=== PATIENT | female | born 1940 | race Caucasian/White ===

== ENCOUNTER 2018-02-24 23:06 | Inpatient (IN) | payer MEDICARE, OTHER ==
[2018-02-25] MEDS ORDERED: cefTRIAXone\\ROCEPHIN 1 GM VIAL ONE (00:53)
[2018-02-25 01:11] LABS: Bilirubin Negative (Negative); Blood, Urine Trace (Negative); Clarity CLOUDY (Clear); Glucose, Urine (Dipstick) Negative (Negative); Leukocyte Large (Negative); Nitrite Negative (Negative); Protein, Urine (Dipstick) 30 mg/dL (Neg-Trace); Specific Gravity, Urine 1.009 (1.002-1.036); Urobilinogen 0.2 mg/dL (0.2-1.0)
[2018-02-25 01:13] LABS: Bacteria/HPF 4+ HPF (None Seen); Hyaline Casts/LPF 4-6 HYALINE CAST LPF (0-3 Hyaline); Pathc Cast-AUWi Flag 1.01 (0-2.49); Squamous Epithelial None Seen HPF (0-3)
[2018-02-25 01:45] LABS: #Basophils 0.1 thou/uL (0.0-0.2); #Lymphocytes 2.1 thou/uL (1.20-3.40); #Monocytes 0.7 thou/uL (0.11-0.59); %Basophils 0.4 % (0.0-1.0); %Monocytes 3.9 % (0.0-10.0); %Neutrophils 84.6 % (42.0-75.0); Hemoglobin 11.3 g/dL (12.0-16.0); Mean Corpuscular HGB CONC 33.3 g/dL (32.0-36.0); Mean Corpuscular Hemoglobin 31.1 pg (27.0-31.0); Mean Corpuscular Volume 93.2 fL (78.0-98.0); Mean Platelet Volume 7.6 fL (7.4-10.4); Platelet Count 415 thou/uL (130-400); RBC Distribution Width 13.7 % (11.5-14.5); Red Blood Cell (RBC) Count 3.65 mill/uL (4.20-5.40); White Blood Cell (WBC) Count 18.9 thou/uL (4.8-10.8)
[2018-02-25 01:48] LABS: ALT (SGPT) 9 U/L (8-55); AST (SGOT) 12 U/L (5-34); Alkaline Phosphatase 89 U/L (40-150); Anion Gap 23 mmol/L (10-20); Bilirubin, Total 0.3 mg/dL (0.2-1.2); CK (CPK) 32 U/L (29-168); Calc. Creatinine Clearance 0 mL/min (70-130); Calcium 11.7 mg/dL (7.8-10.44); Carbon Dioxide 10 mmol/L (23-31); Chloride 113 mmol/L (98-107); Estimated GFR-MDRD 6; Globulin 3.2 g/dL (2.4-3.5); Glucose 103 mg/dL (83-110); Lipase 26 U/L (8-78); Protein, Total 7.2 g/dL (6.0-8.3); Sodium 139 mmol/L (136-145)
[2018-02-25 01:59] LABS: CKMB 1.3 ng/mL (0-6.6)
[2018-02-25 02:00] LABS: BUN (Urea Nitrogen) 151 mg/dL (9.8-20.1)
[2018-02-25 02:01] LABS: Troponin I Less than 0.010 ng/mL (< 0.028)
[2018-02-25 02:03] LABS: Potassium 7.4 mmol/L (3.5-5.1)
[2018-02-25] MEDS ORDERED: Ondansetron HCl/PF 4 MG/2 ML Vial IVP PRN (02:48)
[2018-02-25] MEDS ORDERED: Acetaminophen 325 MG TAB PO PRN (02:48)
[2018-02-25 03:28] LABS: Lactic Acid 1.2 mmol/L (0.5-2.2)
[2018-02-25] MEDS ORDERED: Sodium Bicarbonate 150 MEQ in Dextrose 5% in Water 1,000 ML IV SCH (03:30)
[2018-02-25 06:29] LABS: Potassium 8.2 mmol/L (3.5-5.1)
[2018-02-25 07:00] LABS: Potassium 7.2 mmol/L (3.5-5.1)
[2018-02-25] MEDS ORDERED: Lidocaine 1% (PF) 30 ML VIAL ONE (07:42)
[2018-02-25] MEDS: Heparin 5,000 UNITS/ML VIAL SC SCH ×3 (08:37→22:42)
--- NOTE | 2018-02-25 09:03 | ULT ---
BILATERAL RENAL ULTRASOUND: Date: 02/25/18 HISTORY: Acute renal failure. Evaluate for obstructive uropathy. COMPARISON: None. TECHNIQUE: Sagittal and transverse imaging of the kidneys performed. FINDINGS: Both kidneys have an overall normal echotexture. Bilaterally, no hydronephrosis. There is a 1.3 x 1.4 x 1.3 cm hypoechoic focus in the upper pole of the right kidney. Right kidney measures 10.5 x 4.0 x 4.5 cm. Left kidney measures 10.2 x 5.3 x 5.4 cm. Though there is a Pichardo catheter in the urinary bladder, there is still urine present. IMPRESSION: 1. Hypoechoic focus in upper pole of right kidney, which may represent a complex cyst. Follow-up ult rasound in 6 months is recommended. 2. No hydronephrosis. POS: FOUZIA
[2018-02-25 09:48] LABS: HBSAB Concentration 0.34 mIU/mL; HBSAg Index 0.17 S/CO (0-0.99); Hep B Core Total Ab Non-Reactive (NonReactive); Hep B Core Total Index 0.34 S/CO (0-0.79); Hep B Surf AB Non-Reactive (NonReactive); Hep B Surf Ag Non-Reactive S/CO (NonReactive); Hep C IgG Ab Non-Reactive (NonReactive); Hep C Index 0.22 S/CO (0-0.79)
[2018-02-25] MEDS ORDERED: Heparin 10,000 UNITS/ 10 ML VIAL ONE (10:00)
--- NOTE | 2018-02-25 11:12 | PDOC.PN ---
- Subjective Encounter Start Date: 02/25/18 Encounter Start Time: 10:30 Subjective: awake, not oriented -: not in distress -: getting HD - Objective Resuscitation Status: Resuscitation Status FULL:Full Resuscitation MAR Reviewed: Yes Vital Signs & Weight: Vital Signs (12 hours) Temp Pulse Ox 02/25/18 07:22 100 02/25/18 07:00 98.0 F 02/25/18 05:21 98 02/25/18 03:45 98.6 F Weight Weight 104 lb 4.458 oz Most Recent Monitor Data Heart Rate from ECG 79 NIBP 120/66 NIBP BP-Mean 84 Respiration from ECG 23 SpO2 97 I&O: 02/24/18 02/25/18 02/26/18 06:59 06:59 06:59 Intake Total 115 Output Total 340 785 Balance -225 -785 Result Diagrams: 02/25/18 01:33 02/25/18 06:41 Phys Exam - Physical Examination HEENT: PERRLA, sclera anicteric Neck: no JVD, supple Respiratory: no wheezing rales+ Cardiovascular: RRR, no significant murmur Gastrointestinal: soft, non-tender, positive bowel sounds Musculoskeletal: no edema, pulses present Neurological: non-focal, moves all 4 limbs Dx/Plan (1) Hyperkalemia Code(s): E87.5 - HYPERKALEMIA Status: Acute (2) Acute renal failure Status: Acute Qualifiers: Acute renal failure type: unspecified Qualified Code(s): N17.9 - Acute kidney failure, unspecified (3) Metabolic acidosis Code(s): E87.2 - ACIDOSIS Status: Acute (4) Severe dehydration Code(s): E86.0 - DEHYDRATION Status: Acute (5) Volume overload Code(s): E87.70 - FLUID OVERLOAD, UNSPECIFIED Status: Acute (6) Dementia Code(s): F03.90 - UNSPECIFIED DEMENTIA WITHOUT BEHAVIORAL DISTURBANCE Status: Chronic Qualifiers: Dementia type: unspecified type - Plan is getting hemodialysis for persistent severely elevated potassium -: not sure if she is a custodial candidate for HD with underlying fairly adv -: -dementia -: correct electrolytes, renal usg shows no obstr uropathy -: is on rocephin for uti. Had normal creatinine of 1 in december 2017 * . Review of Systems - Medications/Allergies Allergies/Adverse Reactions: Allergies Allergy/AdvReac Type Severity Reaction Status Date / Time celecoxib [From Celebrex] Allergy Verified 02/25/18 04:17 rosuvastatin [From Crestor] Allergy Verified 02/25/18 04:17 Medications: Current Medications Acetaminophen (Tylenol) 650 mg PO Q4H PRN PRN Reason: Headache/Fever or Pain Heparin Sodium (Porcine) (Heparin) 5,000 units SC TID [facility] Last Admin: 02/25/18 08:37 Dose: 5,000 units Ceftriaxone Sodium 1 gm/ (Sodium Chloride) 100 mls @ 200 mls/hr IVPB Q24HR [facility] Sodium Bicarbonate 150 meq/ (Dextrose/Water) 1,150 mls @ 125 mls/hr IV .Q9H12M [facility] Stop: 02/25/18 12:30 Last Admin: 02/25/18 04:11 Dose: 1,150 mls Ondansetron HCl (Zofran) 4 mg IVP Q6H PRN PRN Reason: Nausea/Vomiting
[2018-02-25] MEDS ORDERED: Sodium Bicarbonate 100 MEQ in Dextrose 5% in Water 1,000 ML IV SCH (12:15)
[2018-02-25] MEDS ORDERED: Lactated Ringer's 1,000 ML IV SCH (12:15)
--- NOTE | 2018-02-25 12:30 | CON ---
DATE OF CONSULTATION: 02/25/2018 SERVICE: Pulmonary Medicine. REASON FOR CONSULTATION: ICU patient. HISTORY OF PRESENT ILLNESS: The patient is a 77-year-old white female with past medical history significant for advancing dementia. She can no longer take care of herself. She has a hard time walking with a walker. She had a fall and made broke her hip. Since that time, she had very difficult time recovering. She spends most of her time in bed sleeping. Otherwise, in this usual state of health, on Monday, she stopped eating. She stopped drinking anything. The daughter suggest that was because she hurt her jaw. Since then, she has not been taking any p.o. Either way, she got increasingly dehydrated. When she started becoming lethargic, she was brought to the Emergency Department. She was discovered to be profoundly volume down. She was given a little bit of IV fluids, which improved her urine output because of hyperkalemia , she underwent dialysis. She just finished this up. She tolerated fairly well , but right at the end, had some marginal blood pressures. The patient cannot provide any additional elements of the history. She gotten no worse, she is what the situation is. She currently denies having any chest pain or shortness of breath. She has some leg discomfort where the vas cath was placed. PAST MEDICAL HISTORY: 1. Dementia. 2. Coronary artery disease. 3. Hypertension. 4. Dyslipidemia. PAST SURGICAL HISTORY: 1. Hip surgery in 10/2017. 2. Hysterectomy. 3. Tonsillectomy. SOCIAL HISTORY: The patient was a heavy drinker and a heavy alcohol user. She has not been on any of these things in the past 6 months. She has no history of illicit drug use that we are aware of. She has no exposure to chemicals, dust asbestos or tuberculosis. FAMILY HISTORY: Noncontributory. ALLERGIES: CELECOXIB, ROSUVASTATIN. MEDICATIONS: List of her inpatient medications were reviewed. Couple of small updates were made. REVIEW OF SYSTEMS: General, head, eyes, nose, throat, cardiovascular, respiratory, GI, , musculoskeletal, neurologic and skin is negative except as mentioned in the HPI. PHYSICAL EXAMINATION: VITAL SIGNS: Afebrile, pulse 84, blood pressure 99/49, respirations 18, saturation 99% on room air. GENERAL: The patient is awake, alert, in no apparent distress. LUNGS: Decent air entry. There is no rhonchi or crackles present. There is a slightly prolonged expiratory phase, but I do not appreciate any wheezing. HEART: Normal rate, regular. ABDOMEN: Soft, nontender, nondistended. Bowel sounds are positive. MUSCULOSKELETAL: No cyanosis or clubbing. There is no pitting in the bilateral lower extremities, but she does demonstrate tenting throughout. GENITOURINARY: Pichardo catheter in place. NEUROLOGIC: Grossly nonfocal. LABORATORY DATA: WBC 18.9, hemoglobin 11.3, platelets 415,000. Potassium 7.2 as of this morning, prior to dialysis. Creatinine 6.73, above baseline of 1.06 from 2 months ago. BUN 151. Liver function studies are unremarkable. BNP 1700 , lactate 1.2. Urinalysis is positive for pyuria. Hepatitis serologies are unremarkable. Urine culture is negative to date. IMAGING DATA: 1. Ultrasound demonstrates no evidence of hydronephrosis. Possible complex cyst is in the right kidney. 2. Chest x-ray demonstrates no acute cardiopulmonary abnormality. ASSESSMENT: 1. Metabolic encephalopathy. 2. Acute kidney injury. 3. Hyperkalemia. 4. Dehydration, profound 5. Dementia, advanced. DISCUSSION AND PLAN: We will continue supportive measures including IV fluids. Our target will be to rehydrate the abrasion over the next 24-48 hours. Her potassium will be lower after dialysis. At this point, she is stable for transition to the telemetry unit. Pulmonary Critical Care will continue to follow along in the meantime. 70 minutes have been devoted to this patient in various activities. I personally reviewed all imaging studies and laboratory data noted within this document. For fifty percent of this time, I was interacting with the patient at the bedside or coordinating care with the care team. For the remainder of the time I was immediately available to the patient in the hospital unit. LUCRECIA
--- NOTE | 2018-02-25 13:05 | PDOC.EVN ---
Event Note - Event Note Event Note: D/w daughter at bedside and gave full updates about all labs and the current plan. She will talk to her brother and decide about code status and let us know, likely DNR but await her opinion. Daughter is aware that renal function might not recover or will take a long time to recover. May transfer to telemetry, will likely need sitter if daughter leaves her bedside.
[2018-02-25 14:48] LABS: Anion Gap 17 mmol/L (10-20); BUN (Urea Nitrogen) 78 mg/dL (9.8-20.1); Calc. Creatinine Clearance 12 mL/min (70-130); Calcium 9.2 mg/dL (7.8-10.44); Carbon Dioxide 25 mmol/L (23-31); Chloride 108 mmol/L (98-107); Estimated GFR-MDRD 16; Glucose 128 mg/dL (83-110); Potassium 4.4 mmol/L (3.5-5.1); Sodium 146 mmol/L (136-145)
--- NOTE | 2018-02-25 23:48 | OP ---
PROCEDURE: Right femoral dialysis catheter placement with ultrasound guidance. BALANCE STAFF INSPECTOR: Javid Mejia MD MEDICATION: 2% lidocaine. DETAILS OF PROCEDURE: After the site has been identified, ultrasound was used to identify the right femoral vein and marked on the skin. After the patient was prepped and draped, with the aid of real time ultrasound guidance, the right femoral vein was approached in layers, and after serial dilatatio n, a dialysis catheter was then secured in place and all the ports flushed well. The patient tolerat ed the procedure with no immediate postop complications.
[2018-02-26] MEDS: cefTRIAXone\\ROCEPHIN 1 GM in Sodium Chloride 0.9% 100 ML IVPB SCH ×2 (00:32→22:13)
[2018-02-26 04:45] LABS: Anion Gap 16 mmol/L (10-20); BUN (Urea Nitrogen) 58 mg/dL (9.8-20.1); Calc. Creatinine Clearance 17 mL/min (70-130); Calcium 8.5 mg/dL (7.8-10.44); Carbon Dioxide 30 mmol/L (23-31); Chloride 103 mmol/L (98-107); Estimated GFR-MDRD 24; Glucose 87 mg/dL (83-110); Potassium 3.9 mmol/L (3.5-5.1); Sodium 145 mmol/L (136-145)
[2018-02-26 05:29] LABS: Eosinophils 3 % (0-10); Hemoglobin 9.4 g/dL (12.0-16.0); Lymphocytes 34 % (21-51); MDiff Complete? YES; Mean Corpuscular HGB CONC 33.4 g/dL (32.0-36.0); Mean Corpuscular Hemoglobin 30.6 pg (27.0-31.0); Mean Corpuscular Volume 91.9 fL (78.0-98.0); Mean Platelet Volume 7.8 fL (7.4-10.4); Monocytes 4 % (0-10); Neutrophil 57 % (42-75); Platelet Count 292 thou/uL (130-400); RBC Distribution Width 13.7 % (11.5-14.5); Reactive Lymphocytes 2 % (0-10); Red Blood Cell (RBC) Count 3.06 mill/uL (4.20-5.40); White Blood Cell (WBC) Count 14.3 thou/uL (4.8-10.8)
--- NOTE | 2018-02-26 07:32 | CON ---
DATE OF CONSULTATION: 02/25/2018 CONSULTING PHYSICIAN: Javid Mejia MD REQUESTING PHYSICIAN: ER physician and Dr. Lebron. REASON FOR CONSULTATION: Severe hyperkalemia and acute kidney injury with profound azotemia. IMPRESSION: 1. Acute kidney injury. This is likely multifactorial, but mainly protracted prerenal state. 2. Severe hyperkalemia, multifactorial etiology including but not limited to the following: A. Problem #1. B. Iatrogenic in the context of ingestion of potassium supplements as well as lisinopril and supplem ent of potassium content not specified. 3. Metabolic acidosis in the context of the problems listed above. PLAN: The patient's hyperkalemia seems to be persistently above 7, despite all the medical intervent ion carried out from [facility] and here. Therefore, patient to undergo hemodialysis and further m anagement to be dependent on the clinical course. HISTORY OF PRESENT ILLNESS: History is that of a 77-year-old female patient who has not been eating well, presented and was noted to have severe hyperkalemia with potassium above 9.5 and severe bradyca rdia. As a result, the patient was transferred to us here. According to the daughter, the patient b it down on something and probably hurt her teeth. Since then the patient stopped eating. The patien t was making do with only liquid supplements. In any case, the patient noted to be on lisinopril and potassium supplementation as well as Lasix, despite not eating very well. Patient continued to be c ompliant with this medication. The patient does have progressive dementia. PAST MEDICAL HISTORY: Significant for dementia, coronary artery disease, hypertension, dyslipidemia. MEDICATIONS: Reviewed as documented on [employer]. FAMILY HISTORY: Not significantly related to the presenting illness. ALLERGIES: ROSUVASTATIN and CELECOXIB. REVIEW OF SYSTEMS: Highly limited given the mental status of this patient. PHYSICAL EXAMINATION: GENERAL: The patient was found to be cachectic and noted with the following vital signs. VITAL SIGNS: Blood pressure 134/65, pulse 80, respiratory rate 22. HEENT: Unremarkable. CARDIOVASCULAR SYSTEM: First and second heart sounds were heard. RESPIRATORY SYSTEM: Clear to auscultation. DIGESTIVE SYSTEM: Revealed a benign abdomen. EXTREMITIES: No peripheral edema. SUMMARY: A 77-year-old female patient who was brought in here with severe symptomatic bradycardia in the context of acute renal shutdown. Thank you for this consultation. We will follow with you.
--- NOTE | 2018-02-26 08:15 | HP ---
PRIMARY CARE PHYSICIAN: Dr. Vicky Crews. CODE STATUS: FULL CODE. TIME OF EVALUATION: 2:00 a.m. CHIEF COMPLAINT: Failure to thrive. HISTORY OF PRESENT ILLNESS: This is a 77-year-old female patient brought to the hospital after having severe generalized weakness, failure to associated with failure to thrive, dehydration, with no clear triggers, no alleviating factors. The patient has been getting gradually worse for the past 2 days. REVIEW OF SYSTEMS: Constitutional: No reported, low grade fever, no chills, patient reported generalized weakness. Respiratory: No cough, sputum production or shortness of breath. Cardiovascular: No chest pain, palpitation. Gastrointestinal: No nausea, no vomiting, diarrhea or abdominal pain. Central nervous system: No dizziness, headache or feeling lightheaded. Genitourinary: No burning with urination. Extremities: No leg swelling. All other systems were reviewed and negative except for the findings mentioned above. PAST MEDICAL HISTORY: Coronary artery disease, hyperlipidemia, hypertension. PAST SURGICAL HISTORY: Knee replacement, hysterectomy, tonsillectomy. PSYCHIATRIC HISTORY: Early stage dementia. SOCIAL HISTORY: Formerly a heavy drinker, former tobacco user, but has not smoked in a year. KNOWN ALLERGIES: CELEBREX, CRESTOR. REPORTED MEDICATIONS: Lasix, aspirin, Lipitor, amlodipine, lisinopril, metoprolol, potassium chloride, ropinirole, venlafaxine, Tylenol, probiotic. PHYSICAL EXAMINATION: VITAL SIGNS: Blood pressure 88/45, temperature 96.1, blood pressure recovered after hydration went to the high side, 171/50. Daughter had reported that the patient has labile blood pressure, goes up and down. GENERAL APPEARANCE: Patient is alert, lethargic, dehydrated and very dry mouth. Not in any acute distress and also in good mood. HEENT: Eyes: Normal conjunctivae, dry oral mucosa. Anicteric. NECK: No JVD. RESPIRATORY: Bilateral air entry. No rales, no wheezing. Symmetric expansion. CARDIOVASCULAR: Normal rate, regular rhythm. No murmurs or gallop. No edema. ABDOMEN: Soft, normal bowel sounds. MUSCULOSKELETAL: Baseline range of motion and strength. No tenderness. SKIN: Warm and intact. No pallor, no rash, no redness. Peripheral pulses are present. Capillary refill seems to be intact. NEUROLOGIC: Baseline sensory. No evidence of any new focal weakness. Baseline speech. Cranial nerves seem to be intact. PSYCHIATRIC: The patient is in good mood, lethargic, unable to fully explore. IMAGING: EKG was reviewed by myself. Patient has normal sinus rhythm, ventricular rate at 61, NV 176, QRS 92, QT corrected 370. X-ray was reviewed by myself. The patient has chronic findings, no acute intrathoracic abnormalities. LABORATORY DATA: Reviewed. The patient has white count of 18, hemoglobin 11, MCV 93, platelet count of 115. Sodium 139, potassium 7.4, chloride 113, carbon dioxide 10, anion gap 23, BUN 151, creatinine 6.7. Lactic acid was 2.2. Troponin was negative. Urine was positive with a white blood cell count greater than 50. ASSESSMENT AND PLAN: The patient will be placed in ICU with the following medical problems, critical care time 135 minutes and bedside assessment, stabilization of the patient, coordination of care, review and elaboration of records. 1. Acute kidney injury that is severe, patient has a very elevated creatinine of 6.73 and in previous admission was 1, likely prerenal secondary to severe dehydration. Dr. Hua has been called from ER, plan to take the patient for dialysis given severe metabolic acidosis, hyperkalemia, and acute kidney injury. We will follow recommendations. 2. Severe hyperkalemia. Prior to transfer, potassium was greater than 9, here is 7.4. The patient with plan to go for dialysis per recommendation from the Dr. Hua. 3. Severe anion gap metabolic acidosis likely secondary to acute kidney injury. Treatment as above. 4. Urinary tract infection. White count is more than 15, too numberous to count in urine, could be the trigger for all this metabolic derangement and failure to thrive for the past few days. We will adjust the patient with antibiotics, follow cultures and adjust treatment as needed. 5. Possible severe sepsis. The patient has elevated white count, but she has no fever as reported, source is urinary tract infection. Patient receiving aggressive hydration given also concomitant dehydration. We will treat accordingly. 6. Labile hypertension. The patient has a history of blood pressure that is hard to control because it goes extremely high and goes low, has been in the high side, we will monitor. We will not treat aggressively, given underlying sepsis, dehydration, risk for septic shock. We will adjust treatment as per patient's clinical response. 7. Hyperlipidemia, we will reconcile home medications, low cholesterol diet is advised. 8. Coronary artery disease. This is a chronic coronary artery disease which is stable, we will reconcile home medications. 9. Deep venous thrombosis prophylaxis. 10. Underlying dementia, pt will need supportive care as inpatient. EDUARDD
[2018-02-26] MEDS ORDERED: Heparin 10,000 UNITS/ 10 ML VIAL ONE (10:00)
[2018-02-26] MEDS: Heparin 5,000 UNITS/ML VIAL SC SCH ×3 (10:58→22:14)
--- NOTE | 2018-02-26 10:58 | PQF ---
DATE: 02-26-18 ATTN: DR. IRVIN WHYTE Please exercise your independent, professional judgment in responding to the clarification form. Clinical indicators are provided on the bottom of this form for your review Please check appropriate box(s) to clarify if the following diagnosis has been ruled in or ruled out: SEVERE SEPSIS [ ] Ruled in diagnosis [ ] Continue to treat [ ] Resolved [ ] Ruled out diagnosis [ ] Other diagnosis [ ] Unable to determine In addition, please specify: Present on Admission (POA): [ ] Yes [ ] No [ ] Unable to determine For continuity of documentation, please document condition throughout progress notes and discharge summary. Thank You. CLINICAL INDICATORS - SIGNS / SYMPTOMS / LABS ER: WEAKNESS H&P: FAILURE TO THRIVE, WEAKNESS, DEHYDRATION, LETHARGIC, POSSIBLE SEVERE SEPSIS. SOURCE IS UTI, LABILE HTN. WE WILL NOT TREAT AGGRESSIVELY, GIVEN HER UNDERLYING SEPSIS, DEHYDRATION, RISK FOR SEPTIC SHOCK. WBC: 02-25-18: 18.9 02-26-18: 14.3 RISK FACTORS: H&P: POSSIBLE SEVERE SEPSIS. SOURCE IS UTI H&P: FAILURE TO THRIVE, DEHYDRATION, CAD, HLP, HTN, HYPERKALEMIA, WEAKNESS, LETHARGIC TREATMENTS: ER/MAR: CEFTRIAXONE INJ, NS IVF (This form is maintained as a part of the permanent medical record) 2014 [employer] All Rights Reserved DEBORAH [email or web address] Office: [phone] LUCRECIA
[2018-02-26] MEDS: Dextrose 5 %-0.45 % NaCl 1,000 ML IV SCH ×2 (11:25→17:29)
--- NOTE | 2018-02-26 12:01 | PDOC.PN ---
- Subjective Encounter Start Date: 02/26/18 Encounter Start Time: 12:00 -: old records requested/rev t seen and examined, chart reviewed in its entirety, this is my first visit with this patient followup for severe sepsis (POA, ruled in), UTI with Citrobacter, REUBEN and hyperkjalemi, s/p emergent HD last night. NO F/c, no N/V/d/c, no other acute events all systems reviewed and neg x as above - Objective Resuscitation Status: Resuscitation Status FULL:Full Resuscitation MAR Reviewed: Yes Vital Signs & Weight: Vital Signs (12 hours) Temp Pulse Resp BP Pulse Ox 02/26/18 04:00 99.0 F 72 16 130/50 L 97 Weight Weight 120 lb 8 oz Most Recent Monitor Data Heart Rate from ECG 75 NIBP 141/48 NIBP BP-Mean 79 Respiration from ECG 21 SpO2 100 I&O: 02/25/18 02/26/18 02/27/18 06:59 06:59 06:59 Intake Total 115 1774 Output Total 340 1475 Balance -225 299 Result Diagrams: 02/26/18 04:04 02/26/18 04:04 Radiology Reviewed by me: Yes EKG Reviewed by me: Yes Phys Exam - Physical Examination Constitutional: NAD HEENT: PERRLA, moist MMs, sclera anicteric, oral pharynx no lesions Neck: no nodes, no JVD, supple, full ROM Respiratory: no wheezing, no rales, no rhonchi, clear to auscultation bilateral Cardiovascular: RRR, no significant murmur, no rub Gastrointestinal: soft, non-tender, no distention, positive bowel sounds Musculoskeletal: no edema, pulses present Neurological: non-focal, normal sensation, moves all 4 limbs Lymphatic: no nodes Skin: no rash, normal turgor, cap refill <2 seconds Dx/Plan (1) Severe sepsis Code(s): A41.9 - SEPSIS, UNSPECIFIED ORGANISM; R65.20 - SEVERE SEPSIS WITHOUT SEPTIC SHOCK Status: Acute Comment: present on admission, ruled in, resolving (2) Acute UTI Code(s): N39.0 - URINARY TRACT INFECTION, SITE NOT SPECIFIED Status: Acute Comment: citrobacter, present on admission (3) Acute renal failure Status: Acute Qualifiers: Acute renal failure type: unspecified Qualified Code(s): N17.9 - Acute kidney failure, unspecified Comment: likelyt secondary to severe dehydration and severe sepsis. Cr down after HD, Ezeanuna following (4) Hyperkalemia Code(s): E87.5 - HYPERKALEMIA Status: Resolved (5) Metabolic acidosis Code(s): E87.2 - ACIDOSIS Status: Resolved (6) Severe dehydration Code(s): E86.0 - DEHYDRATION Status: Resolved (7) Dementia Code(s): F03.90 - UNSPECIFIED DEMENTIA WITHOUT BEHAVIORAL DISTURBANCE Status: Chronic Qualifiers: Dementia type: unspecified type - Plan cont current plan of care, plan discussed w/ family, continue antibiotics, PT/OT * .
--- NOTE | 2018-02-26 12:33 | PRG ---
DATE OF SERVICE: 02/26/2018 SERVICE: Pulmonary Medicine INTERVAL HISTORY: The patient is doing great from a respiratory standpoint. She is breathing comfor tably. There has been no interval change to her condition. She denies any fevers, chills, nausea, v omiting or chest discomfort. Otherwise, she has returned to her usual state of health from a strengt h and mentation standpoint. PHYSICAL EXAMINATION: VITAL SIGNS: Afebrile, pulse 72, blood pressure 130/50, respirations 16, saturation 97% on room air. GENERAL: The patient is awake, alert, in no apparent distress. LUNGS: Decent air entry. There is no prolonged expiratory phase or wheezing present. HEART: Normal rate, regular. ABDOMEN: Soft, nontender, nondistended. Bowel sounds are positive. MUSCULOSKELETAL: No cyanosis or clubbing. There is no pitting in the bilateral lower extremities. NEUROLOGIC: Grossly nonfocal. LABORATORY DATA: WBC 14.3, hemoglobin 9.4, platelets 292,000 with normal differential. Creatinine h as improved since dialysis down to 2.0. Potassium 3.9, sodium 150, chloride 103. Basic metabolic pr ofile is otherwise unremarkable. Urine culture is growing Citrobacter and a second gram negative jose luis which are pansensitive. Blood cultures x2 remain negative. IMAGING: Echocardiogram demonstrates a normal ejection fraction with no significant valvular abnorma lities. ASSESSMENT: 1. Metabolic encephalopathy, resolved. 2. Acute kidney injury. 3. Dehydration, profound. 4. Dementia, advanced. 5. Hyperkalemia, resolved. DISCUSSION AND PLAN: We will continue gentle hydration through time. There [facility] Critical Care opinion. As such, I will sign off. Please call if the p albert's condition deteriorates.
[2018-02-26 12:49] VITALS: BMI 20.7
--- NOTE | 2018-02-26 22:45 | PRG ---
DATE OF SERVICE: 02/26/2018 SUBJECTIVE: The patient was seen and examined, seems to be doing much better and noted with the foll owing vital signs. OBJECTIVE: VITAL SIGNS: Afebrile with temperature 98.1, pulse 72, respirations 20, O2 saturation 94% with blood pressure 126/49. HEENT: Unremarkable with moist oral mucosa. NECK: Supple. No conjunctival injection or icterus. CARDIOVASCULAR SYSTEM: First and second heart sounds were heard. RESPIRATORY SYSTEM: Clear to auscultation. DIGESTIVE SYSTEM: Revealed a benign abdomen with positive bowel sounds. EXTREMITIES: No peripheral edema. SKIN: No new gross rash. LYMPHATICS: No peripheral lymphadenopathy. LABORATORY INVESTIGATIONS: Showed a creatinine down to 2.0 and potassium 3.9. IMPRESSION: 1. Acute kidney injury improved. 2. Hyperkalemia, resolved. PLAN: 1. We will hold off on dialysis and likely discontinue the dialysis catheter. 2. Continue renal supportive measures. 3. Further management to be dependent on the clinical course.
[2018-02-27] MEDS: Dextrose 5 %-0.45 % NaCl 1,000 ML IV SCH (02:02)
[2018-02-27 06:43] LABS: Mean Corpuscular HGB CONC 32.3 g/dL (32.0-36.0); Mean Corpuscular Hemoglobin 30.5 pg (27.0-31.0); Mean Corpuscular Volume 94.5 fL (78.0-98.0); Mean Platelet Volume 7.8 fL (7.4-10.4); Platelet Count 271 thou/uL (130-400); RBC Distribution Width 13.3 % (11.5-14.5); Red Blood Cell (RBC) Count 2.94 mill/uL (4.20-5.40); White Blood Cell (WBC) Count 12.1 thou/uL (4.8-10.8)
[2018-02-27 06:48] LABS: Anion Gap 13 mmol/L (10-20); BUN (Urea Nitrogen) 21 mg/dL (9.8-20.1); Calc. Creatinine Clearance 40 mL/min (70-130); Calcium 7.9 mg/dL (7.8-10.44); Carbon Dioxide 25 mmol/L (23-31); Chloride 104 mmol/L (98-107); Estimated GFR-MDRD 55; Glucose 107 mg/dL (83-110); Magnesium 1.5 mg/dL (1.6-2.6); Potassium 3.7 mmol/L (3.5-5.1); Sodium 138 mmol/L (136-145)
[2018-02-27 08:38] LABS: Band 2 % (5-11); Burr Cells SLIGHT = 2-5 cells (100X) (0-1/hpf); Eosinophils 5 % (0-10); Lymphocytes 44 % (21-51); MDiff Complete? YES; Monocytes 3 % (0-10); Neutrophil 46 % (42-75); PLT Morphology Comment Appears Adequate; Polychromasia SLIGHT = 2-3 cells (100X) (0-2/hpf)
[2018-02-27] MEDS ORDERED: Enoxaparin Sodium 30 MG/0.3 ML SYRINGE SC SCH (09:00)
[2018-02-27] MEDS ORDERED: Metoprolol Tartrate 50 MG TAB PO SCH ×2 (10:15→21:00)
[2018-02-27] MEDS ORDERED: Amlodipine 5 MG TAB PO SCH (10:15)
[2018-02-27] MEDS ORDERED: Magnesium Sulfate 2 GM in Sodium Chloride 0.9% 100 ML IVPB SCH (11:00)
[2018-02-27] MEDS ORDERED: Magnesium 2 GM/NS 0.9% 100 ML 2 GM in Sodium Chloride 0.9% 100 ML IVPB SCH (11:00)
[2018-02-27] MEDS ORDERED: Ciprofloxacin 500 MG TAB PO SCH (11:15)
[2018-02-27 11:24] VITALS: TEMP 98.5
[2018-02-27] MEDS ORDERED: Megestrol Acetate 800 MG/20 ML UDCUP PO SCH (11:45)
[2018-02-27 12:13] VITALS: BP 192/79
--- NOTE | 2018-02-27 15:11 | DIS ---
DATE OF ADMISSION: 02/25/2018 DATE OF DISCHARGE: 02/27/2018 PRIMARY CARE PHYSICIAN: Dr. Vicky Crews. DISCHARGE DIAGNOSES: 1. Urinary tract infection, acute cystitis without hematuria. 2. Severe dehydration secondary to decreased p.o. intake and over diuresis. 3. Acute kidney injury, present on admission, resolved. 4. Sepsis, present on admission secondary to urinary tract infection, resolved. 5. Hypertension, vascular dementia, chronic. 6. Coronary artery disease, without angina. 7. Hyperlipidemia. 8. Essential hypertension. PROCEDURES: Echocardiogram on 02/25/2018 showed EF of 60% -65% with normal left atrium and left vent ricle, mild to moderate TR and mild AI. HISTORY AND PHYSICAL: Ms. Moreira a 77-year-old female who lives at home with family, she has had 1 week history of increased more than her baseline and decreased p.o. intake. She continued to take her Lasix. She was brought to the emergency department for evaluation on 02/25/2018, which she found to have a potassium of 8. We were called for admission. HOSPITAL COURSE: The patient was seen and examined by Dr. Carbajal, placed into the ICU. Renal was consulted and did urgent dialysis on 02/25/2018 with a second on 02/26/2018. Her creatinine improved from 8 to 2 by 02/26 and down to 0.98 today. Potassium normalized after dialysis. The patient was hydrated gently with good results. Today, she is feeling better. Renal signed off a nd cleared for discharge. She is tolerating her antibiotics well with Rocephin, urine culture came b ack with Citrobacter isabel susceptible as well as the second gram negative rods still pending ID and connell sceptibility. The patient was transitioned to p.o. Cipro and discharged home in stable condition with a close outp atient followup. PHYSICAL EXAMINATION: The patient was seen and examined on the day of discharge. Discharge plan and disposition was discussed with the patient and her family [id number] at bedside. DISCHARGE MEDICATIONS: NEW MEDICATIONS: Cipro 250 mg p.o. b.i.d. for 7 days. HOME MEDICATIONS: Continue, 1. Norvasc 5 mg daily. 2. Aspirin 81 mg daily. 3. Atorvastatin 40 mg daily. 4. Florajen 460 mg daily. 5. Metoprolol tartrate 50 mg p.o. b.i.d. 6. Ropinirole 0.25 mg p.o. b.i.d. 7. Effexor XR 75 mg daily. HOME MEDICATIONS: To discontinue. 1. Lasix. 2. Lisinopril. 3. Potassium chloride until follow up with primary care physician. DISCHARGE CONDITION: Stable. DISPOSITION: Being discharged home via private vehicle with family. DISCHARGE ACTIVITY: Per cardiopulmonary limits. DISCHARGE DIET: Unrestricted. Heart healthy.
[2018-02-27] MEDS ORDERED: Cipro 250 MG TAB PO SCH (20:00)
[2018-02-27] MEDS ORDERED: rOPINIRole HCl 0.25 MG TAB PO SCH (21:00)
[2018-02-28] MEDS ORDERED: Lactinex Tablet PO SCH (09:00)
[2018-02-28] MEDS ORDERED: Venlafaxine XR 37.5 MG CAP PO SCH (09:00)
[2018-02-28] MEDS ORDERED: Aspirin 81 mg Enteric Coated Tablet PO SCH (09:00)
[2018-02-28] MEDS ORDERED: Amlodipine 5 MG TAB PO SCH (09:00)
--- NOTE | 2018-03-03 11:32 | EKG ---
Test Reason : Blood Pressure : / mmHG Vent. Rate : 061 BPM Atrial Rate : 061 BPM P-R Int : 176 ms QRS Dur : 092 ms QT Int : 376 ms P-R-T Axes : 069 016 072 degrees QTc Int : 378 ms Normal sinus rhythm Anterior infarct , age undetermined Abnormal ECG Confirmed by EDENILSON PORTER, LYNDA ([id number]), supervising editor news reel MITCHELL PARDO ([id number]) on 03/03/2018 11:32:07 AM Referred By: Confirmed By:LYNDA PYLE MD
== END 2018-02-27 14:26 | disposition home or self-care (01) | DRG 871 ==
LOC: ERS 23:06 → CCU 02-25 00:53 → 2SE 02-25 18:02
PROVIDERS: ADMIT Hospitalist; ATTEND Hospitalist
PROC: 06HY33Z Insertion of Infusion Device into Lower Vein, Percutaneous Approach (ICD-10-PCS; principal; 2018-02-25)
PROC: B54BZZA Ultrasonography of Right Lower Extremity Veins, Guidance (ICD-10-PCS; 2018-02-25)
DX: A41.9 Sepsis, unspecified organism (principal); G93.41 Metabolic encephalopathy; R64 Cachexia; N17.9 Acute kidney failure, unspecified; E87.2 Acidosis; N30.00 Acute cystitis without hematuria; Z68.20 Body mass index [BMI] 20.0-20.9, adult; R62.7 Adult failure to thrive; E87.6 Hypokalemia; I25.10 Atherosclerotic heart disease of native coronary artery without angina pectoris; E78.5 Hyperlipidemia, unspecified; I10 Essential (primary) hypertension; E87.5 Hyperkalemia; E87.70 Fluid overload, unspecified; Z96.659 Presence of unspecified artificial knee joint; Z87.891 Personal history of nicotine dependence; Z79.899 Other long term (current) drug therapy; Z79.82 Long term (current) use of aspirin; R65.20 Severe sepsis without septic shock; Z91.81 History of falling; F03.90 Unspecified dementia, unspecified severity, without behavioral disturbance, psychotic disturbance, mood disturbance, and anxiety; Z88.8 Allergy status to other drugs, medicaments and biological substances
CPT/HCPCS: 36415; 36416; 76770; 80048; 80053; 81003; 82553; 83605; 83690; 83735; 83880; 84132; 84484; 85025; 86704; 86706; 86803; 87040; 87077; 87086; 87186; 87340; 90935; 93005; 93306; 94760; 96361; 96374; C1752; G0257; G8978-GP-CK; G8979-GP-CI; J0696; J1642; J1644; J1650; J2001; J3475; J7050; J7070

== ENCOUNTER 2018-03-14 17:43 | Emergency (ER) | payer MEDICARE, OTHER ==
[2018-03-14 18:34] LABS: #Monocytes 0.5 thou/uL (0.11-0.59); #Neutrophils 10.3 thou/uL (1.40-6.50); %Basophils 0.2 % (0.0-1.0); %Eosinophils 0.1 % (0.0-10.0); %Lymphocytes 8.7 % (21.0-51.0); %Monocytes 4.1 % (0.0-10.0); %Neutrophils 86.9 % (42.0-75.0); Hemoglobin 8.7 g/dL (12.0-16.0); Mean Corpuscular Hemoglobin 30.8 pg (27.0-31.0); Mean Corpuscular Volume 96.2 fL (78.0-98.0); Mean Platelet Volume 5.9 fL (7.4-10.4); Platelet Count 496 thou/uL (130-400); RBC Distribution Width 13.5 % (11.5-14.5); Red Blood Cell (RBC) Count 2.84 mill/uL (4.20-5.40); White Blood Cell (WBC) Count 11.9 thou/uL (4.8-10.8)
[2018-03-14 18:55] LABS: ALT (SGPT) 13 U/L (8-55); AST (SGOT) 16 U/L (5-34); Albumin 3.2 g/dL (3.4-4.8); Alkaline Phosphatase 64 U/L (40-150); Anion Gap 13 mmol/L (10-20); BUN (Urea Nitrogen) 17 mg/dL (9.8-20.1); Bilirubin, Total 0.4 mg/dL (0.2-1.2); Calc. Creatinine Clearance 0 mL/min (70-130); Calcium 8.9 mg/dL (7.8-10.44); Carbon Dioxide 18 mmol/L (23-31); Chloride 108 mmol/L (98-107); Estimated GFR-MDRD 47; Globulin 2.6 g/dL (2.4-3.5); Glucose 71 mg/dL (83-110); Lipase 8 U/L (8-78); Potassium 3.8 mmol/L (3.5-5.1); Protein, Total 5.8 g/dL (6.0-8.3); Sodium 135 mmol/L (136-145)
[2018-03-14 19:55] LABS: Bilirubin Negative (Negative); Blood, Urine Negative (Negative); Clarity CLEAR (Clear); Glucose, Urine (Dipstick) Negative (Negative); Leukocyte Negative (Negative); Nitrite Negative (Negative); Protein, Urine (Dipstick) Negative (Neg-Trace); Urobilinogen 0.2 mg/dL (0.2-1.0)
[2018-03-14 22:20] LABS: CKMB 0.6 ng/mL (0-6.6)
[2018-03-14 22:44] LABS: Troponin I Less than 0.010 ng/mL (< 0.028)
== END 2018-03-14 22:42 | disposition home or self-care (01) ==
LOC: ERS 17:43
DX: R19.7 Diarrhea, unspecified (principal); I25.10 Atherosclerotic heart disease of native coronary artery without angina pectoris; E78.5 Hyperlipidemia, unspecified; Z87.891 Personal history of nicotine dependence; I10 Essential (primary) hypertension; Z79.899 Other long term (current) drug therapy; Z79.82 Long term (current) use of aspirin
CPT/HCPCS: 36415; 80053; 81003; 82274; 82553; 83690; 84484; 85025; 99284; A4353

== ENCOUNTER 2018-04-06 20:57 | Observation (INO) | payer MEDICARE, OTHER ==
[2018-04-06] MEDS ORDERED: Morphine 2 MG/ML SYRINGE ONE (22:19)
[2018-04-06 22:48] LABS: #Basophils 0.1 thou/uL (0.0-0.2); #Eosinphils 0.1 thou/uL (0.0-0.7); #Lymphocytes 3.7 thou/uL (1.20-3.40); #Monocytes 0.6 thou/uL (0.11-0.59); %Basophils 0.7 % (0.0-1.0); %Eosinophils 0.6 % (0.0-10.0); %Lymphocytes 18.9 % (21.0-51.0); %Monocytes 3.1 % (0.0-10.0); %Neutrophils 76.6 % (42.0-75.0); Hemoglobin 9.5 g/dL (12.0-16.0); Mean Corpuscular HGB CONC 31.7 g/dL (32.0-36.0); Mean Corpuscular Hemoglobin 31.2 pg (27.0-31.0); Mean Corpuscular Volume 98.3 fL (78.0-98.0); Mean Platelet Volume 6.3 fL (7.4-10.4); Platelet Count 544 thou/uL (130-400); RBC Distribution Width 14.6 % (11.5-14.5); Red Blood Cell (RBC) Count 3.05 mill/uL (4.20-5.40); White Blood Cell (WBC) Count 19.6 thou/uL (4.8-10.8)
--- NOTE | 2018-04-06 22:51 | RAD ---
RIGHT HIP TWO VIEWS: 04/06/18 HISTORY: Fall. Right hip injury. FINDINGS: Mild joint space narrowing and osteophytosis. Femoral head contour is maintained. No acute fracture o r dislocation. Prominent arterial calcification. IMPRESSION: Mild degenerative changes . No acute osseous abnormalities are demonstrated. Atherosclerosis. POS: [facility]
[2018-04-06 23:05] LABS: ALT (SGPT) 21 U/L (8-55); AST (SGOT) 21 U/L (5-34); Albumin 3.7 g/dL (3.4-4.8); Alkaline Phosphatase 68 U/L (40-150); Anion Gap 10 mmol/L (10-20); BUN (Urea Nitrogen) 30 mg/dL (9.8-20.1); Bilirubin, Total 0.3 mg/dL (0.2-1.2); Calc. Creatinine Clearance 0 mL/min (70-130); Calcium 9.1 mg/dL (7.8-10.44); Carbon Dioxide 25 mmol/L (23-31); Chloride 108 mmol/L (98-107); Estimated GFR-MDRD 59; Globulin 2.9 g/dL (2.4-3.5); Glucose 103 mg/dL (83-110); Potassium 4.1 mmol/L (3.5-5.1); Protein, Total 6.6 g/dL (6.0-8.3); Sodium 139 mmol/L (136-145)
[2018-04-06 23:09] LABS: Troponin I Less than 0.010 ng/mL (< 0.028)
[2018-04-06 23:13] LABS: Bilirubin Negative (Negative); Blood, Urine Negative (Negative); Clarity CLEAR (Clear); Glucose, Urine (Dipstick) Negative (Negative); Leukocyte Negative (Negative); Nitrite Negative (Negative); Protein, Urine (Dipstick) Trace mg/dL (Neg-Trace); Specific Gravity, Urine 1.009 (1.002-1.036); Urobilinogen 0.2 mg/dL (0.2-1.0)
--- NOTE | 2018-04-06 23:21 | RAD ---
LEFT HIP TWO VIEWS: 04/06/18 HISTORY: Fall. Left hip pain. FINDINGS: Left hip prosthesis is in place without perihardware lucency. No acute fracture or dislocation. Promi nent calcification throughout the arterial structures. IMPRESSION: Left hip prosthesis. No acute osseous abnormalities are demonstrated. Atherosclerosis. POS: [facility]
--- NOTE | 2018-04-06 23:23 | RAD ---
AP PELVIS ONE VIEW: 04/06/18 HISTORY: Fall. Pelvic pain. FINDINGS: Osseous structures are demineralized. Sacral ala and pelvic rings are intact. Left hip prosthesis. Pr ominent arterial calcifications. IMPRESSION: Left hip prosthesis. No acute osseous abnormalities are demonstrated. Atherosclerosis. Osteoporosis. POS: [facility]
--- NOTE | 2018-04-06 23:50 | CT ---
CT PELVIS NONCONTRAST: 04/06/18 HISTORY: Fall. Left hip injury. FINDINGS: Left hip prosthesis in place. No perihardware lucency. No acute fracture, dislocation, or aggressive osseous erosions. Degenerative changes of the right hip and lower lumbar spine. Prominent calcificati on throughout the arterial structures. IMPRESSION: No acute osseous abnormalities are demonstrated. Atherosclerosis. Left hip prosthesis. POS: [facility]
[2018-04-07] MEDS ORDERED: Acetaminophen 325 MG TAB PO PRN (06:14)
[2018-04-07] MEDS ORDERED: HYDROcodone/Acetaminophen 5/325 mg Tablet PO PRN ×2 (06:14)
[2018-04-07 06:28] VITALS: BMI 21.2
[2018-04-07 08:25] LABS: #Basophils 0.1 thou/uL (0.0-0.2); #Eosinphils 0.3 thou/uL (0.0-0.7); #Lymphocytes 2.1 thou/uL (1.20-3.40); #Monocytes 0.6 thou/uL (0.11-0.59); #Neutrophils 14.6 thou/uL (1.40-6.50); %Basophils 0.7 % (0.0-1.0); %Eosinophils 1.6 % (0.0-10.0); %Lymphocytes 11.8 % (21.0-51.0); %Monocytes 3.2 % (0.0-10.0); %Neutrophils 82.7 % (42.0-75.0); Hemoglobin 8.4 g/dL (12.0-16.0); Mean Corpuscular HGB CONC 31.8 g/dL (32.0-36.0); Mean Corpuscular Hemoglobin 30.9 pg (27.0-31.0); Mean Corpuscular Volume 97.2 fL (78.0-98.0); Mean Platelet Volume 6.1 fL (7.4-10.4); Platelet Count 462 thou/uL (130-400); RBC Distribution Width 14.8 % (11.5-14.5); Red Blood Cell (RBC) Count 2.72 mill/uL (4.20-5.40); White Blood Cell (WBC) Count 17.7 thou/uL (4.8-10.8)
[2018-04-07 08:32] LABS: ALT (SGPT) 17 U/L (8-55); AST (SGOT) 16 U/L (5-34); Albumin 3.2 g/dL (3.4-4.8); Alkaline Phosphatase 57 U/L (40-150); Anion Gap 11 mmol/L (10-20); BUN (Urea Nitrogen) 24 mg/dL (9.8-20.1); Bilirubin, Total 0.4 mg/dL (0.2-1.2); Calc. Creatinine Clearance 48 mL/min (70-130); Calcium 8.6 mg/dL (7.8-10.44); Carbon Dioxide 23 mmol/L (23-31); Chloride 108 mmol/L (98-107); Estimated GFR-MDRD 67; Globulin 2.5 g/dL (2.4-3.5); Glucose 97 mg/dL (83-110); Potassium 4.3 mmol/L (3.5-5.1); Protein, Total 5.7 g/dL (6.0-8.3); Sodium 138 mmol/L (136-145)
[2018-04-07 08:36] LABS: Troponin I Less than 0.010 ng/mL (< 0.028)
[2018-04-07] MEDS: Venlafaxine HCl XR 75 MG CAP PO SCH (09:19)
[2018-04-07] MEDS: Amlodipine 5 MG TAB PO SCH (09:19)
[2018-04-07] MEDS: Aspirin 81 mg Enteric Coated Tablet PO SCH (09:19)
[2018-04-07] MEDS: Metoprolol Tartrate 50 MG TAB PO SCH ×2 (09:19→21:29)
[2018-04-07] MEDS: Atorvastatin Calcium 40 MG TAB PO SCH (09:19)
--- NOTE | 2018-04-07 09:20 | HP ---
CHIEF COMPLAINT: Syncope. HISTORY OF PRESENT ILLNESS: This patient is a 77-year-old female, who presented via the emergency de partment. The patient was here about 5 weeks ago for some acute renal insufficiency and urinary trac t infection. Patient had evaluation at that time, which included an echocardiogram revealing fairly normal cardiac function. The patient also has a history of what sounds like orthostatic syncope christa g back for over a year. Patient's family reports that, a year ago, she was still living by herself a nd this was happening more frequently, but since they brought her here closer to family, they have se en a fewer episodes of that type of thing occurring. Yesterday, the patient was in her usual health when she got up from a lawn chair and started to walk when she had extremely brief syncopal episode o r near syncopal episode, but she did fall and unfortunately landed on her hip area. She has a histor y of left hip prosthesis, but they had tried to get her up after the fall and the patient was having too much pain to stand on her feet. Therefore, they called the ambulance and brought the patient to the hospital. The patient reports she feels fine right now, has no specific complaints. Family repo rts that she has been eating and drinking well. She has had no evidence of recent illness. REVIEW OF SYSTEMS: Ten-system review is negative except for those things mentioned in the history of present illness other than the fact that they report that the patient is somewhat resistant to getti ng up and moving around now at home. PAST MEDICAL HISTORY: Notable for coronary artery disease; hyperlipidemia; hypertension; couple epis odes of acute renal insufficiency that appear to be more likely related to dehydration from use of di uretics, which have now been discontinued; some documented early-stage dementia. PAST SURGICAL HISTORY: Hemiarthroplasty of left hip, hysterectomy, tonsillectomy. SOCIAL HISTORY: The patient was a formerly heavy drinker, but is no longer drinking at all. Former tobacco user, but has not smoked in over a year. FAMILY HISTORY: Reviewed, nothing contributory to this admission. ALLERGIES: CELEBREX and CRESTOR. CURRENT MEDICATIONS: Ropinirole 0.25 mg 1 p.o. b.i.d., venlafaxine 75 mg every day, metoprolol 50 mg b.i.d., atorvastatin 40 mg every day, amlodipine 5 mg every day, aspirin 81 mg every day. PHYSICAL EXAMINATION: VITAL SIGNS: T-max 99.4, pulse 73, respirations 20, O2 sat 98% on 2 liters nasal cannula, 95% on patrizia m air, BP 181/68. GENERAL APPEARANCE: Age-appropriate female, very sweet and pleasant lady, in no distress. She is aw wei and alert. She does not speak a great deal until spoken to, but smiles appropriately. HEENT: Pupils are reactive. She has no OP lesions. NECK: Supple and symmetric with good carotid pulses with no bruits. CARDIOVASCULAR: Regular rate and rhythm without murmurs, gallops, or rubs. LUNGS: Clear to auscultation bilaterally with good chest wall expansion and air exchange. ABDOMEN: Soft, nontender, nondistended, positive bowel sounds. No masses, no organomegaly. EXTREMITIES: Warm and dry with no edema. She has tenderness to palpation at the right trochanter, b ut fairly good range of motion with the hip and no real tenderness at the hip joint and the pelvis. Left side appears to be fairly nontender. LABORATORY DATA: Initial labs showed white count of 19.6, hemoglobin 9.5, platelets 544. Chemistrie s notable for a chloride of 108, BUN of 30, creatinine of 0.92. Urinalysis is negative. Hip x-rays are negative. CT pelvis negative for any evidence of fracture. Chest x-ray, by my read, appears to be normal. EKG is normal sinus rhythm. IMPRESSION AND PLAN: 1. Syncope. The patient said that she is having orthostatic hypotension-related syncope. She has i solated systolic hypertension and is on a beta koffi and Norvasc. We will check orthostatic blood pressures today. Given the recurrent nature of this problem, we would consider adding some fludrocor tisone if she is positive for orthostasis. I do not suspect other workup is indicated. She has had a negative echocardiogram in the past, and I do not believe this is a vascular issue. 2. Leukocytosis. No real evidence of infection at this time. It has come down a bit overnight. Hagan spect this may be simply some de-margination due to a stress reaction. 3. Anemia. The patient's hemoglobin, a month ago, was around 9. She is pretty close to that right now and did drop a little bit overnight. Suspect that may be slightly dilution. We will likely rech william it again late this afternoon. 3. Thrombocytosis, again probably some stress reaction. It is also improved overnight. We will rec heck again later. 4. Hip pain. Imaging reveals no evidence of fracture. She reports her pain to be better today. We will go ahead and get her up and moving with physical therapy today and see how she does with that. 5. Hypertension. We will continue with her metoprolol and Norvasc for the time being. 6. History of coronary artery disease. Continue aspirin and beta koffi. 7. Hyperlipidemia. Continue with the atorvastatin. 8. Recent history of "failure to thrive." She has been placed on Megace and her appetite apparently has significantly improved. I am holding that for now, but she can resume at discharge.
--- NOTE | 2018-04-07 10:10 | RAD ---
PORTABLE CHEST: Date: 04/07/18 PROVIDED CLINICAL HISTORY: Possible hip fracture. FINDINGS: Comparison with 02/24/18. Cardiac silhouette appears enlarged. Vascular calcification involves the thoracic aorta. The prominen ce of the pulmonary interstitium is similar to prior. No focal consolidation, pleural fluid, or pneum othorax apparent. IMPRESSION: No evidence for an acute cardiopulmonary process. POS: [facility]
[2018-04-07 15:07] LABS: #Basophils 0.1 thou/uL (0.0-0.2); #Eosinphils 0.5 thou/uL (0.0-0.7); #Lymphocytes 2.3 thou/uL (1.20-3.40); #Monocytes 0.5 thou/uL (0.11-0.59); #Neutrophils 12.4 thou/uL (1.40-6.50); %Basophils 0.5 % (0.0-1.0); %Eosinophils 2.9 % (0.0-10.0); %Lymphocytes 14.6 % (21.0-51.0); %Monocytes 2.9 % (0.0-10.0); %Neutrophils 79.1 % (42.0-75.0); Hemoglobin 8.8 g/dL (12.0-16.0); Mean Corpuscular HGB CONC 31.7 g/dL (32.0-36.0); Mean Corpuscular Hemoglobin 31.3 pg (27.0-31.0); Mean Corpuscular Volume 98.8 fL (78.0-98.0); Mean Platelet Volume 6.3 fL (7.4-10.4); Platelet Count 499 thou/uL (130-400); RBC Distribution Width 14.8 % (11.5-14.5); Red Blood Cell (RBC) Count 2.81 mill/uL (4.20-5.40); White Blood Cell (WBC) Count 15.6 thou/uL (4.8-10.8)
[2018-04-07] MEDS ORDERED: Prevnar 13-Val Conj/PF 0.5 ML SYRINGE IM ONE (21:00)
[2018-04-08] MEDS ORDERED: HYDROcodone/Acetaminophen 5/325 mg Tablet PO PRN (00:52)
[2018-04-08] MEDS: hydrALAZINE 20 MG/ML VIAL SLOW IVP PRN ×2 (05:19→18:39)
[2018-04-08] MEDS: Acetaminophen 325 MG TAB PO PRN ×2 (05:20→18:38)
[2018-04-08 08:20] LABS: #Basophils 0.1 thou/uL (0.0-0.2); #Eosinphils 0.4 thou/uL (0.0-0.7); #Lymphocytes 2.1 thou/uL (1.20-3.40); #Monocytes 0.6 thou/uL (0.11-0.59); #Neutrophils 9.9 thou/uL (1.40-6.50); %Basophils 0.7 % (0.0-1.0); %Eosinophils 3.3 % (0.0-10.0); %Lymphocytes 16.3 % (21.0-51.0); %Monocytes 4.6 % (0.0-10.0); %Neutrophils 75.2 % (42.0-75.0); Mean Corpuscular HGB CONC 32.9 g/dL (32.0-36.0); Mean Corpuscular Hemoglobin 31.7 pg (27.0-31.0); Mean Corpuscular Volume 96.3 fL (78.0-98.0); Mean Platelet Volume 6.1 fL (7.4-10.4); Platelet Count 391 thou/uL (130-400); RBC Distribution Width 14.5 % (11.5-14.5); Red Blood Cell (RBC) Count 2.54 mill/uL (4.20-5.40); White Blood Cell (WBC) Count 13.1 thou/uL (4.8-10.8)
[2018-04-08 08:24] LABS: Anion Gap 12 mmol/L (10-20); BUN (Urea Nitrogen) 17 mg/dL (9.8-20.1); Calc. Creatinine Clearance 50 mL/min (70-130); Calcium 8.7 mg/dL (7.8-10.44); Carbon Dioxide 22 mmol/L (23-31); Chloride 107 mmol/L (98-107); Estimated GFR-MDRD 71; Glucose 95 mg/dL (83-110); Potassium 3.7 mmol/L (3.5-5.1); Sodium 137 mmol/L (136-145)
[2018-04-08] MEDS: Aspirin 81 mg Enteric Coated Tablet PO SCH (09:33)
[2018-04-08] MEDS: Atorvastatin Calcium 40 MG TAB PO SCH (09:33)
[2018-04-08] MEDS: Metoprolol Tartrate 50 MG TAB PO SCH ×2 (09:33→20:00)
[2018-04-08] MEDS: Amlodipine 5 MG TAB PO SCH (09:34)
[2018-04-08] MEDS: Venlafaxine HCl XR 75 MG CAP PO SCH (09:34)
--- NOTE | 2018-04-08 13:16 | RAD ---
LUMBAR SPINE 2 VIEWS: Date: 04/08/18 HISTORY: Fall with lower back pain. FINDINGS: There are compression deformities involving the T12 and L1 vertebra. Both these vertebra show central compression and mild loss of anterior height. Posterior height is preserved and posterior alignment is maintained. The lumbar vertebra below L1 maintain normal height. Moderate degenerative spurring is seen. Facet hypertrophy. No evidence of spondylolisthesis. Dense aortic calcification. IMPRESSION: There are compression deformities involving the T12 and L1 vertebra, age-indeterminate. POS: [facility]
[2018-04-08] MEDS ORDERED: traMADol HCl 50 MG TAB PO PRN (15:16)
--- NOTE | 2018-04-08 15:16 | PDOC.PN ---
- Subjective Encounter Start Date: 04/08/18 Encounter Start Time: 15:14 Pt seen for followup re: syncope. - Objective MAR Reviewed: Yes Vital Signs & Weight: Vital Signs (12 hours) Temp Pulse Pulse Pulse Resp BP BP 04/08/18 11:56 97.7 F 69 20 04/08/18 11:09 67 66 106/58 L 04/08/18 09:34 72 153/66 H 04/08/18 07:47 99.1 F 72 18 04/08/18 05:19 76 04/08/18 04:35 100.1 F H 76 18 BP BP BP Pulse Ox 04/08/18 11:56 113/54 L 96 04/08/18 11:09 146/67 H 04/08/18 09:34 04/08/18 07:47 153/66 H 92 L 04/08/18 05:19 04/08/18 04:35 188/78 H 94 L Weight Weight 120 lb Result Diagrams: 04/08/18 08:05 04/08/18 08:05 EKG Reviewed by me: Yes (Tele: NSR) Phys Exam - Physical Examination Constitutional: NAD HEENT: moist MMs Neck: supple Respiratory: clear to auscultation bilateral Cardiovascular: RRR Gastrointestinal: soft Neurological: moves all 4 limbs Psychiatric: normal affect Dx/Plan (1) Syncope Code(s): R55 - SYNCOPE AND COLLAPSE Status: Acute Comment: no recurrence, likely due to hypotension, lisinopril on hold. Awaiting Rehab bed. (2) Vertebral fracture Code(s): FAW9301 - Status: Acute Comment: Chronicity unclear at this time, will consult neurosurgery for opinion and help with further management. (3) Dementia Code(s): F03.90 - UNSPECIFIED DEMENTIA WITHOUT BEHAVIORAL DISTURBANCE Status: Chronic Qualifiers: Dementia type: unspecified type Comment: stable - Plan * . Review of Systems - Review of Systems Cardiovascular: negative: chest pain, palpitations, orthopnea, paroxysmal nocturnal dyspnea, edema, light headedness Musculoskeletal: Back Pain. negative: Neck Pain, Shoulder Pain, Arm Pain, Hand Pain, Leg Pain, Foot Pain Neurological: negative: Weakness, Numbness, Incoordination, Change in Speech, Confusion, Seizures - Medications/Allergies Allergies/Adverse Reactions: Allergies Allergy/AdvReac Type Severity Reaction Status Date / Time celecoxib [From Celebrex] Allergy Verified 04/07/18 09:39 rosuvastatin [From Crestor] Allergy Verified 04/07/18 09:39 Medications: Current Medications Acetaminophen (Tylenol) 650 mg PO Q4H PRN PRN Reason: Headache/Fever or Pain Last Admin: 04/08/18 05:20 Dose: 650 mg Acetaminophen/Codeine Phosphate (Tylenol #3) 1 tab PO Q6H PRN PRN Reason: Pain Amlodipine Besylate (Norvasc) 5 mg PO DAILY [facility] Last Admin: 04/08/18 09:34 Dose: 5 mg Aspirin (Ecotrin) 81 mg PO DAILY [facility] Last Admin: 04/08/18 09:33 Dose: 81 mg Atorvastatin Calcium (Lipitor) 40 mg PO DAILY [facility] Last Admin: 04/08/18 09:33 Dose: 40 mg Hydralazine HCl (Apresoline) 10 mg SLOW IVP Q6H PRN PRN Reason: SBP GREATER THAN 160 Last Admin: 04/08/18 05:19 Dose: 10 mg Metoprolol Tartrate (Lopressor) 50 mg PO BID [facility] Last Admin: 04/08/18 09:33 Dose: 50 mg Tramadol HCl (Ultram) 50 mg PO Q6H PRN PRN Reason: Pain Venlafaxine HCl (Effexor Xr) 75 mg PO DAILY [facility] Last Admin: 04/08/18 09:34 Dose: 75 mg
[2018-04-08] MEDS ORDERED: Acetaminophen/Codeine 30-300mg Tablet PO PRN (15:17)
[2018-04-08 15:44] VITALS: TEMP 99.2
--- NOTE | 2018-04-08 18:13 | CT ---
CT LUMBAR SPINE NONCONTRAST: History: Low back pain, compression fracture. Comparison: FINDINGS: Minimal compression of the T11 superior endplate has the appearance of a chronic process. Compression of the T12 superior endplate results in loss of height centrally by approximately 15%. So me cortical irregularity, although this may be at a Schmorl's node. Minimal retropulsion of the super ior endplate. Posterior elements are preserved. Other vertebral body heights are maintained. Rightward convex curvature. Prominent calcifications thr oughout the arterial structures. IMPRESSION: 1. Mild compression of the T12 superior endplate, age indeterminate. No evidence of unstable injury. 2. Minimal T11 superior endplate compression appears chronic. 3. Atherosclerosis. POS: [facility]
[2018-04-08 18:42] VITALS: BP 162/71
--- NOTE | 2018-04-09 01:55 | DIS ---
DATE OF ADMISSION: 04/06/2018 DATE OF DISCHARGE: 04/08/2018 PRIMARY CARE PHYSICIAN: Vicky Crews MD DISCHARGE DIAGNOSES: 1. Syncope. 2. Vertebral fracture. CONDITION OF PATIENT ON THE DAY OF DISCHARGE: Stable. I assessed Ms. Moreira on the day of dischar ge. She denies any chest pain or shortness of breath. She complains of back pain. Vital signs are stable. S1 and S2 are heard, regular. Lungs are clear to auscultation bilaterally. DISCHARGE MEDICATIONS: Amlodipine 5 mg daily, aspirin 81 mg daily, Lipitor 40 mg daily, metoprolol t artrate 50 mg 2 times a day, ropinirole 0.25 mg 2 times a day, Effexor XR 75 mg daily, Tylenol #3 one tablet every 6 hours as needed, and tramadol 50 mg every 6 hours as needed. CONSULTATION DURING THIS HOSPITALIZATION: Neurosurgery, Dr. Mariscal. HOSPITAL COURSE: Ms. Moreira is a pleasant 77-year-old lady who was admitted to [facility] on 04/06/2018 following a syncopal episode. Please refer to Dr. Boo's history and physical note dated 04/07/2018 for further details. It appears that she was on lisinopril at the time of admission. This was discontinued. She was also on potassium chloride at the time of admission. Her potassium was 4.1 at the time of admission, bailee nding down to 3.7 on the day of discharge. She is advised to have her potassium level checked in 3-5 days, at which time a decision can be made regarding restarting her potassium. She also complained of back pain. Lumbar spine x-rays done on 04/08/2018 showed compression deformit ies involving T12 and L1 vertebrae, age indeterminate. Neurosurgery service has been consulted. The y recommended lumbar spine CT. At the time of this dictation, further recommendations are pending. She was evaluated by [facility]. She has been accepted for inpatient rehabilitation. She is b eing discharged to inpatient rehab for further management. On the day of discharge, she had sodium 137, potassium 3.7, creatinine 0.78, white count 13,100, hemo globin 8, and platelet count 391,000. Final urine cultures did not show any growth at 36 hours. Many thanks for allowing me to participate in your patient's care. Please feel free to contact me wi th any questions or concerns. DISCHARGE DESTINATION: [facility].
--- NOTE | 2018-04-14 22:12 | EKG ---
Test Reason : FALL Blood Pressure : / mmHG Vent. Rate : 073 BPM Atrial Rate : 073 BPM P-R Int : 156 ms QRS Dur : 086 ms QT Int : 378 ms P-R-T Axes : 070 026 045 degrees QTc Int : 416 ms Normal sinus rhythm Normal ECG Confirmed by KAMRAN CASE MD ([id number]), marketing editor GREY PAULINO ([id number]) on 04/14/2018 10:12:10 PM Referred By: Confirmed By:KAMRAN CASE MD
== END 2018-04-08 20:20 ==
LOC: ERS 20:57 → ERHOLD 23:41 → 2SE 04-07 05:53
PROVIDERS: ADMIT Family Medicine; ATTEND Family Medicine
DX: R55 Syncope and collapse (principal); D72.829 Elevated white blood cell count, unspecified; D64.9 Anemia, unspecified; D47.3 Essential (hemorrhagic) thrombocythemia; M25.551 Pain in right hip; I25.10 Atherosclerotic heart disease of native coronary artery without angina pectoris; E78.5 Hyperlipidemia, unspecified; I10 Essential (primary) hypertension; F03.90 Unspecified dementia, unspecified severity, without behavioral disturbance, psychotic disturbance, mood disturbance, and anxiety; S22.080A Wedge compression fracture of T11-T12 vertebra, initial encounter for closed fracture; S32.010A Wedge compression fracture of first lumbar vertebra, initial encounter for closed fracture; Z87.891 Personal history of nicotine dependence; Z79.82 Long term (current) use of aspirin; Z79.899 Other long term (current) drug therapy; Z88.6 Allergy status to analgesic agent; Z88.8 Allergy status to other drugs, medicaments and biological substances; Z96.642 Presence of left artificial hip joint; W19.XXXA Unspecified fall, initial encounter
CPT/HCPCS: 51701; 71045; 72100; 72131; 72170; 72192; 73502 ×2; 80048; 80053 ×2; 81003; 84484 ×2; 85025 ×4; 87086; 90662; 90670; 93005; 94760; 96361; 96374; 96375; 96376; 97110; 97116; 97530; 99285; G0008; G0009; G0378 ×2; G8978; G8979; 36415; 90471; A4353; J0360; J2270; J7620

== ENCOUNTER 2018-05-10 09:17 | Outpatient (CLI) | payer MEDICARE, OTHER ==
--- NOTE | 2018-05-10 09:59 | RAD ---
TWO VIEWS OF THE LUMBOSACRAL SPINE: COMPARISON: 04/08/2018. HISTORY: Fall in November and again in March. Previous compression fracture. Low back pain. FINDINGS: Two views of the thoracic spine show stable wedge compression deformity of the T12 vertebral body wit h approximately 10% height loss. The lumbar vertebral bodies demonstrate normal height without fract ure or subluxation. Mild to moderate degenerative changes are seen throughout the lumbar spine. Hector cifications are seen in the aorta. IMPRESSION: 1. Remote T12 compression fracture. 2. Moderate degenerative changes of the lumbar spine without acute osseous abnormality. POS: [facility]
== END 2018-05-10 09:18 | disposition home or self-care (01) ==
LOC: TBSIIMAG 09:17
PROVIDERS: ATTEND Neurological Surgery
DX: M48.56XA Collapsed vertebra, not elsewhere classified, lumbar region, initial encounter for fracture (principal); M47.816 Spondylosis without myelopathy or radiculopathy, lumbar region
CPT/HCPCS: 72100

== ENCOUNTER 2019-01-24 15:56 | Outpatient (CLI) | payer MEDICARE, OTHER ==
--- NOTE | 2019-01-24 18:16 | CT ---
EXAM: LUMBAR SPINE CT WITHOUT CONTRAST: 01/24/19 COMPARISON: 04/08/18 HISTORY: Low back pain. TECHNIQUE: Noncontrast lumbar spine CT is performed in the axial plane. Reformatted images are submitted for int erpretation. FINDINGS: Dependent atelectatic changes. Heart is enlarged. There is atherosclerosis of a nonaneurysmal aorta. The visualized solid organs, paraspinal muscles, and alimentary canal are grossly unremarkable. Incompletely evaluated hypodensity in the right hemipelvis. Possibility of a right ovarian lesion can not be excluded. Lesion is incompletely evaluated but measures 3.2 x 2.6 cm. CHILD DEVELOPMENT DIRECTOR consultation is oly mmended. There is chronic loss of vertebral body height at T11 and T12. The lumbar vertebrae have preservation of vertebral body height. No fractures. No malalignment. No spondylolisthesis or spondylolysis. Ther e is bone demineralization. Limited evaluation of the contents of the central spinal canal and neural foramina due to technique. T10-T11: No high grade central canal stenosis or high grade foraminal narrowing. T11-T12: No high grade central canal stenosis or high grade foraminal narrowing. T12-L1: No high grade central canal stenosis or high grade foraminal narrowing. L1-L2: No high grade central canal stenosis or high grade foraminal narrowing. L2-L3: Minimal general broad based disc bulge, ligamentum flavum thickening, and facet hypertrophy re sult in minimal central canal stenosis. Bilaterally, neural foramina are patent. L3-L4: There appears to be calcification of the disc. Broad based disc bulge, ligamentum flavum thick ening and facet hypertrophy result in mild central canal stenosis. Mild bilateral foraminal narrowing . L4-L5: There appears to be calcification of the disc. Broad based disc bulge, ligamentum flavum thick ening and facet hypertrophy result in mild central canal stenosis. Mild to moderate right and mild le ft foraminal narrowing. L5-S1: There is a broad based disc bulge, ligamentum flavum thickening, and facet hypertrophy. Mild c entral canal stenosis. Moderate right and moderate to severe left foraminal narrowing. IMPRESSION: 1. No evidence of a lumbar spine fracture (acute). Chronic change involving the T11 and T12 vert ebrae. 2. No evidence of significant central canal stenosis or significant foraminal narrowing. 3. Soft tissue mass in the right hemipelvis, incompletely evaluated. CHILD DEVELOPMENT DIRECTOR consultation is recomme nded. Results of the study conveyed to Dr. Mariscal via [employer] 01/24/19 at 4:31 p.m. Code CR POS: [facility]
== END 2019-01-24 15:57 | disposition home or self-care (01) ==
LOC: TBSIIMAG 15:56
PROVIDERS: ATTEND Neurological Surgery
DX: M54.5 Low back pain (principal); R19.09 Other intra-abdominal and pelvic swelling, mass and lump
CPT/HCPCS: 72131

== ENCOUNTER 2019-02-26 10:31 | Outpatient (CLI) | payer MEDICARE, OTHER ==
--- NOTE | 2019-02-26 11:31 | CT ---
EXAM: CT Pulmonary Lung Scan, noncontrast PROVIDED CLINICAL HISTORY: Partial history of tobacco abuse. Shortness of breath. COMPARISON: None FINDINGS: There are reticulonodular densities seen in the right upper lobe inferiorly. There is otherwise no di screte pulmonary nodule or mass visualized. No pleural effusion is seen. Minimal biapical pleural and parenchymal scarring is present. Calcified granulomata are seen in the right middle lobe. Dense v ascular calcifications are seen in the coronary arteries and involving the thoracic aorta. Lack of intravenous contrast limits evaluation of the mediastinal structures, but no definite enlarge d lymph nodes are seen. Extensive calcifications are seen in the breasts bilaterally. Visualized upper abdomen demonstrates dense vascular calcifications. Oval-shaped radiopaque density i s seen within the lumen of the stomach likely due to ingested material and probably medication Degenerative changes are seen in the spine. A mild compression fracture involving the superior endpla te of T12 vertebral body is noted of indeterminate age. IMPRESSION: 1. Lung RADS category 1, negative. Continued annual screening with low-dose CT scan in 12 months is r ecommended. 2. Lung RADS category S - Reticulonodular densities in the right upper lobe which may be related to a n infectious or inflammatory process. Clinical correlation is recommended. 3. Extensive vascular calcifications. 4. Mild compression fracture of the T12 vertebral body of indeterminate age based on this exam.
== END 2019-02-26 10:32 | disposition home or self-care (01) ==
LOC: CT 10:31
PROVIDERS: ATTEND Nurse Practitioner Adult Health
DX: Z87.891 Personal history of nicotine dependence (principal); I25.10 Atherosclerotic heart disease of native coronary artery without angina pectoris
CPT/HCPCS: G0297

== ENCOUNTER 2020-06-19 05:24 | Inpatient (IN) | payer MEDICARE, OTHER ==
[2020-06-19] MEDS ORDERED: Dexamethasone 10 MG/ML VIAL ONE (06:06)
[2020-06-19 06:08] LABS: #Basophils 0.1 thou/uL (0.0-0.2); #Eosinphils 0.1 thou/uL (0.0-0.7); #Lymphocytes 1.8 thou/uL (1.20-3.40); #Neutrophils 6.9 thou/uL (1.40-6.50); %Basophils 1.2 % (0.0-1.0); %Eosinophils 0.8 % (0.0-10.0); %Lymphocytes 17.8 % (21.0-51.0); %Monocytes 10.4 % (0.0-10.0); %Neutrophils 69.8 % (42.0-75.0); Hemoglobin 11.1 g/dL (12.0-16.0); Mean Corpuscular HGB CONC 33.2 g/dL (32.0-36.0); Mean Corpuscular Hemoglobin 31.2 pg (27.0-31.0); Mean Corpuscular Volume 93.8 fL (78.0-98.0); Mean Platelet Volume 7.3 fL (7.4-10.4); Platelet Count 247 thou/uL (130-400); RBC Distribution Width 12.5 % (11.5-14.5); Red Blood Cell (RBC) Count 3.56 mill/uL (4.20-5.40); White Blood Cell (WBC) Count 9.9 thou/uL (4.8-10.8)
[2020-06-19 06:28] LABS: ALT (SGPT) 21 U/L (8-55); AST (SGOT) 35 U/L (5-34); Albumin 3.5 g/dL (3.4-4.8); Alkaline Phosphatase 85 U/L (40-110); Anion Gap 14 mmol/L (10-20); BUN (Urea Nitrogen) 17 mg/dL (9.8-20.1); Bilirubin, Total 0.5 mg/dL (0.2-1.2); Calc. Creatinine Clearance 0 mL/min (70-130); Calcium 8.2 mg/dL (7.8-10.44); Carbon Dioxide 25 mmol/L (23-31); Chloride 92 mmol/L (98-107); Globulin 2.8 g/dL (2.4-3.5); Glucose 102 mg/dL (83-110); Potassium 4.5 mmol/L (3.5-5.1); Protein, Total 6.3 g/dL (6.0-8.3); Sodium 126 mmol/L (136-145)
[2020-06-19] MEDS ORDERED: Ondansetron ODT 4 MG TAB PO PRN (07:42)
[2020-06-19] MEDS ORDERED: Senokot S 8.6-50 MG TAB PO PRN (07:42)
[2020-06-19] MEDS ORDERED: Guaifenesin DM 100-10/5 ML UDCUP PO PRN (07:42)
[2020-06-19] MEDS ORDERED: Bisacodyl 5 MG TAB PO PRN (07:42)
[2020-06-19] MEDS ORDERED: Acetaminophen 325 MG TAB PO PRN (07:42)
[2020-06-19] MEDS ORDERED: Ondansetron PF 4 MG/2 ML Vial IVP PRN (07:42)
[2020-06-19] MEDS ORDERED: Sodium Chloride 0.9% 1,000 ML IV SCH (07:45)
--- NOTE | 2020-06-19 07:54 | RAD ---
RADIOGRAPH CHEST 1 VIEW: DATE: 06/19/2020 HISTORY: 79-year-old female with dyspnea FINDINGS: There are no airspace densities, pulmonary edema, pneumothorax, or cardiomegaly. The lateral costophr enic angles are sharp. IMPRESSION: No acute cardiopulmonary findings.
[2020-06-19 08:14] LABS: SARS-CoV-2 NAA Rapid Test DETECTED (NotDetected)
--- NOTE | 2020-06-19 08:56 | HP ---
PRIMARY CARE PHYSICIAN: Dr. Vicky Crews. CHIEF COMPLAINT: Fall. HISTORY OF PRESENT ILLNESS: The majority of the H and P was taken from the ER documentation due to the patient's history of dementia. According to the ER documentation, majority of the history and physical was taken from the patient's daughter, who is also her caregiver. The patient is an 79-year-old female with a past medical history significant for dementia, early stages, CHF, CAD, HTN, and HLD that presents to the emergency department for the above complaint. According to the patient's daughter, the patient experienced a fall two days ago. It was unwitnessed. The patient's daughter reports that she did not hit her head or suffer any major injuries. No loss of consciousness to her knowledge, the patient was not complaining of any specific injuries or problems. Apparently, the patient was exposed to COVID on 06/05/2020. She tested positive for COVID on 06/13/2020. At that time, she is asymptomatic. She developed a nonproductive cough and experienced some shortness of breath on 06/18/2020. The patient denies any loss of smell or taste. She denies any diarrhea or fever. The patient denies any chest pain, heart palpitations, or lightheadedness. She denies any wheezing. She was a heavy smoker, quitting approximately three years ago. She has never been diagnosed with COPD/asthma. No history of DVT/PE. She denies any abdominal pain, nausea, vomiting, or diarrhea. She denies any dysuria or hematuria. In the emergency department, the patient presented hypertensive with a blood pressure of 190/70 and was 90% on room air with normal pulse, respirations, and afebrile. EKG showed sinus rhythm 65 beats per minute. Chest x-ray was consistent with COVID pneumonia. Right hip x-ray was negative for any acute fracture or dislocation. WBCs were 9.9, sodium 126. The patient was given dexamethasone and will be admitted for further evaluation. PAST MEDICAL HISTORY: 1. Dementia, early stages. 2. CHF. 3. CAD. 4. Hypertension. 5. Hyperlipidemia. 6. Depression. SURGICAL HISTORY: 1. Left partial hip replacement in 2018. 2. Hysterectomy. 3. Tonsillectomy. SOCIAL HISTORY: The patient lives with family at home. Her daughter is her caregiver. She used to be a heavy drinker, quitting several years ago. She used to be a heavy smoker, quitting approximately 3 years ago. No illicit drug use. She ambulates with a roller walker. FAMILY HISTORY: Noncontributory. ALLERGIES: 1. CELEBREX. 2. CRESTOR. 3. TRAMADOL. HOME MEDICATIONS: 1. Amlodipine 10 mg p.o. at bedtime. 2. Aspirin 81 mg p.o. q.a.m. 3. Furosemide 20 mg p.o. q.a.m. 4. Metoprolol tartrate 25 mg p.o. b.i.d. 5. Potassium chloride 10 mEq one tab b.i.d. 6. Atorvastatin 40 mg p.o. at bedtime. 7. Lisinopril 20 mg p.o. b.i.d. 8. Tylenol 325 and says take two tabs every 4 hours p.r.n. pain or fever. REVIEW OF SYSTEMS: Unable to obtain accurately due to the patient's history of dementia. PHYSICAL EXAMINATION: VITAL SIGNS: Temperature 97.8, blood pressure 129/54, pulse 60, respirations 20, 95% on room air. CONSTITUTIONAL: The patient appears comfortable, nontoxic, alert, oriented to self, in no acute distress. HEAD: Atraumatic and normocephalic. EYES: PERRLA. Extraocular muscles intact. Sclerae nonicteric. ENT: Oropharynx is clear. Tacky mucous membranes. Uvula midline. No oral lesions. NECK: Full range of motion. No cervical spinous tenderness. No cervical adenopathy. RESPIRATORY/CHEST: Respirations are diminished in the bilateral lower lobes. Expiratory squeak throughout. No rhonchi, no rales. CARDIOVASCULAR: S1, S2 appreciated. No murmurs, rubs, or gallops. ABDOMEN: Soft, nontender, nondistended. Active bowel sounds. No guarding. No rigidity. No rebound. Negative Rovsing. Negative Burton sign. BACK: No central spinous tenderness. No CVA tenderness. EXTREMITIES: Upper extremities; full range of motion, normal strength, sensation intact, palpable radial pulses. Lower extremities; full range of motion, normal strength, sensation intact, palpable pedal pulses, no swelling. NEUROLOGIC: The patient is alert and oriented to self, which is baseline per ER documentation. No focal motor deficits. Able to follow commands. PSYCHIATRIC: Denies SI/HI, alert and oriented x1. LABORATORY AND DIAGNOSTICS: EKG; normal sinus rhythm, no ST elevations. Chest x-ray consistent with COVID pneumonia. Right hip x-ray negative for any acute fracture or dislocation. Sodium 126, potassium 4.5, chloride 92, carbon dioxide 25, BUN 17, creatinine 0.93, glucose 102, calcium 8.2, total bilirubin 0.5, AST 35, ALT 21, alk phosphatase 85. Initial troponin 0.013. WBCs 9.9, hemoglobin 11.1, hematocrit 33.4, platelets 247. IMPRESSION: 1. Acute hypoxic respiratory failure. 2. COVID pneumonia. 3. Hyponatremia. 4. Fall. 5. Congestive heart failure. 6. Coronary artery disease. 7. Dementia. 8. Hypertension. 9. Hyperlipidemia. 10. Chronic anemia. PLAN: An 79-year-old female with COVID exposure on 06/05/2020, tested positive for COVID on 06/13/2020, became symptomatic on 06/18/2020, presents for fall. The patient will be admitted to the medical floor, inpatient status. Expected length of stay, greater than two midnights. Upon assessment, the patient was 95% on room air with respirations even and non labored, in no acute distress. Influenza negative. Covid test confirmed positive. She has been given dexamethasone. Given her onset of symptoms on 06/18, we will consult ID to evaluate whether the patient meets criteria for Remdesivir. We will continue dexamethasone. We will hold Lovenox secondary to her risk for falls. She does not appear to have a superimposed bacterial pneumonia, so therefore we will hold antibiotics. We will give supplemental oxygen as needed. Isolation precautions. Start vitamin C, vitamin D, and zinc. In terms of her hyponatremia, the patient presented with a serum sodium of 126. She is on hydrochlorothiazide and takes venlafaxine daily. This is the likely cause. We will hold free water. We will give gentle IVF w/ NS hydration secondary to her history of CHF. She does not appear to be any fluid volume overload. We will trend troponins and check a BNP. We will recheck a BMP later this afternoon to make sure that the sodium is progressing in the right direction. In terms of her fall, we will place on fall precautions and consult PT, OT. The patient could not recall when or if she fell. In terms of her CHF, we will restart her metoprolol tartrate and atorvastatin. We will hold her furosemide secondary to her hyponatremia. We will continue her aspirin. In terms of her hypertension, we will start her amlodipine and lisinopril. SCDs for deep venous thrombosis prophylaxis. No pharmacological DVT prophylaxis. Pepcid for gastrointestinal prophylaxis. Code status is full code. I attempted to contact her daughter, Vicky Crews, who is her caregiver, but was unable to return with a voicemail. I discussed this case with the attending physician, Dr. Ruelas. Job ID: [id number] MTDD
[2020-06-19] MEDS ORDERED: Venlafaxine XR 37.5 MG CAP PO SCH (09:00)
--- NOTE | 2020-06-19 09:04 | RAD ---
RIGHT HIP 2 VIEWS: HISTORY: Right hip pain. FINDINGS/IMPRESSION: Degenerative changes are present. No acute fracture or dislocation is identified. POS: KATHRYN
[2020-06-19 10:05] LABS: Troponin I 0.012 ng/mL (< 0.028)
[2020-06-19] MEDS: Famotidine/PF 20 mg/2ml Vial SLOW IVP SCH ×2 (10:46→20:12)
[2020-06-19] MEDS: Amlodipine 5 MG TAB PO SCH (11:13)
[2020-06-19] MEDS: Zinc Sulfate 220 MG CAP PO SCH (11:14)
[2020-06-19] MEDS: Aspirin 81 mg Enteric Coated Tablet PO SCH (11:14)
[2020-06-19] MEDS: Famotidine 20 MG TAB PO SCH ×2 (11:14→20:11)
[2020-06-19] MEDS: Metoprolol Tartrate 50 MG TAB PO SCH ×2 (11:14→20:11)
[2020-06-19] MEDS: Cholecalciferol 1,000 UNITS (25 MCG) TAB PO SCH (11:14)
[2020-06-19] MEDS: Ascorbic Acid 500 mg Chewable Tablet PO SCH (11:14)
[2020-06-19] MEDS: Dexamethasone 4 mg/ml Vial SLOW IVP SCH (11:15)
[2020-06-19 11:38] LABS: Anion Gap 14 mmol/L (10-20); BUN (Urea Nitrogen) 15 mg/dL (9.8-20.1); Calc. Creatinine Clearance 0 mL/min (70-130); Carbon Dioxide 25 mmol/L (23-31); Chloride 92 mmol/L (98-107); Glucose 113 mg/dL (83-110); Potassium 4.8 mmol/L (3.5-5.1); Sodium 126 mmol/L (136-145)
[2020-06-19 12:49] LABS: Bacteria/HPF 4+ HPF (None Seen); Bilirubin Negative (Negative); Blood, Urine Negative (Negative); Clarity Clear (Clear); Glucose, Urine (Dipstick) Normal (Negative); Ketone, Urine Negative (Negative); Leukocyte 500 Leu/uL (Negative); Nitrite Negative (Negative); Protein, Urine (Dipstick) Negative (Neg-Trace); RBC/HPF 0-3 HPF (0-3); Specific Gravity, Urine 1.005 (1.002-1.036); Squamous Epithelial 0-3 HPF (0-3); Urobilinogen Normal mg/dL (Less than 2); WBC/HPF 21-50 HPF (0-3)
[2020-06-19 13:35] LABS: Troponin I Less than 0.010 ng/mL (< 0.028)
[2020-06-19 15:45] VITALS: BMI 22.6
[2020-06-19] MEDS: Atorvastatin Calcium 40 MG TAB PO SCH (20:11)
[2020-06-20 07:10] LABS: #Lymphocytes 1.6 thou/uL (1.20-3.40); #Monocytes 0.6 thou/uL (0.11-0.59); #Neutrophils 5.5 thou/uL (1.40-6.50); %Basophils 0.3 % (0.0-1.0); %Eosinophils 0.2 % (0.0-10.0); %Lymphocytes 20.2 % (21.0-51.0); %Monocytes 8.2 % (0.0-10.0); %Neutrophils 71.2 % (42.0-75.0); Hemoglobin 10.8 g/dL (12.0-16.0); Mean Corpuscular HGB CONC 34.2 g/dL (32.0-36.0); Mean Corpuscular Hemoglobin 31.7 pg (27.0-31.0); Mean Corpuscular Volume 92.8 fL (78.0-98.0); Mean Platelet Volume 7.5 fL (7.4-10.4); Platelet Count 252 thou/uL (130-400); RBC Distribution Width 12.4 % (11.5-14.5); Red Blood Cell (RBC) Count 3.41 mill/uL (4.20-5.40); White Blood Cell (WBC) Count 7.7 thou/uL (4.8-10.8)
[2020-06-20 07:31] LABS: Anion Gap 14 mmol/L (10-20); BUN (Urea Nitrogen) 13 mg/dL (9.8-20.1); Calc. Creatinine Clearance 48 mL/min (70-130); Calcium 8.4 mg/dL (7.8-10.44); Carbon Dioxide 24 mmol/L (23-31); Chloride 102 mmol/L (98-107); Glucose 128 mg/dL (83-110); Potassium 4.6 mmol/L (3.5-5.1); Sodium 135 mmol/L (136-145)
[2020-06-20] MEDS: Ascorbic Acid 500 mg Chewable Tablet PO SCH (08:38)
[2020-06-20] MEDS: Cholecalciferol 1,000 UNITS (25 MCG) TAB PO SCH (08:38)
[2020-06-20] MEDS: Amlodipine 5 MG TAB PO SCH (08:38)
[2020-06-20] MEDS: Aspirin 81 mg Enteric Coated Tablet PO SCH (08:38)
[2020-06-20] MEDS: Famotidine/PF 20 mg/2ml Vial SLOW IVP SCH ×2 (08:39→20:09)
[2020-06-20] MEDS: Metoprolol Tartrate 50 MG TAB PO SCH ×2 (08:39→20:09)
[2020-06-20] MEDS: Dexamethasone 4 mg/ml Vial SLOW IVP SCH (08:39)
[2020-06-20] MEDS: Famotidine 20 MG TAB PO SCH ×2 (08:39→20:09)
[2020-06-20] MEDS: Zinc Sulfate 220 MG CAP PO SCH (08:39)
[2020-06-20] MEDS: Venlafaxine HCl XR 75 MG CAP PO SCH ×2 (08:43→20:09)
[2020-06-20] MEDS ORDERED: FLU VACC QS2020-21(65YR UP)/PF 240 MCG/0.7 ML SYRINGE IM ONE (10:15)
--- NOTE | 2020-06-20 14:46 | PDOC.HOSPP ---
- Subjective Encounter Date: 06/20/20 Encounter Time: 09:40 Subjective: is comfortable on 2 ltr nasal canula, has some audible wheezes - Objective Vital Signs & Weight: Vital Signs (12 hours) Temp Pulse Resp BP Pulse Ox 06/20/20 11:52 98.3 F 62 20 145/56 H 99 06/20/20 07:57 98.1 F 64 20 154/60 H 98 06/20/20 05:34 97.9 F 66 16 147/58 H 98 Weight Weight 123 lb 8 oz I&O: 06/19/20 06/20/20 06/21/20 06:59 06:59 06:59 Intake Total 1160 Balance 1160 Result Diagrams: 06/20/20 06:14 06/20/20 06:14 Hospitalist ROS - Medication Medications: Active Medications Generic Name Dose Route Start Last Admin Trade Name Freq PRN Reason Stop Dose Admin Amlodipine Besylate 10 mg 06/19/20 09:00 06/20/20 08:38 Amlodipine 5 Mg Tab PO 10 mg DAILY ARY Administration Ascorbic Acid 1,000 mg 06/19/20 09:00 06/20/20 08:38 Ascorbic Acid 500 Mg Chewable Tablet PO 1,000 mg DAILY ARY Administration Aspirin 81 mg 06/19/20 09:00 06/20/20 08:38 Aspirin 81 Mg Enteric Coated Tablet PO 81 mg DAILY ARY Administration Atorvastatin Calcium 40 mg 06/19/20 21:00 06/19/20 20:11 Atorvastatin Calcium 40 Mg Tab PO 40 mg HS ARY Administration Cholecalciferol 5,000 units 06/19/20 09:00 06/20/20 08:38 Cholecalciferol 1,000 Units (25 Mcg) Tab PO 5,000 units DAILY ARY Administration Dexamethasone 6 mg 06/19/20 09:00 06/20/20 08:39 Dexamethasone 4 Mg/Ml Vial SLOW IVP 6 mg DAILY ARY Administration Famotidine 20 mg 06/19/20 09:00 06/20/20 08:39 Famotidine 20 Mg Tab PO 20 mg BID ARY Administration Famotidine 20 mg 06/19/20 09:00 06/20/20 08:39 Famotidine/Pf 20 Mg/2ml Vial SLOW IVP Not Given Q12HR ARY Metoprolol Tartrate 25 mg 06/19/20 09:00 06/20/20 08:39 Metoprolol Tartrate 50 Mg Tab PO 25 mg BID ARY Administration Venlafaxine HCl 150 mg 06/20/20 09:00 06/20/20 08:43 Venlafaxine Hcl Xr 75 Mg Cap PO 150 mg QAM ARY Administration Zinc Sulfate 220 mg 06/19/20 09:00 06/20/20 08:39 Zinc Sulfate 220 Mg Cap PO 220 mg DAILY ARY Administration - Exam General Appearance: awake alert Eye: PERRL, anicteric sclera ENT: no oropharyngeal lesions, moist mucosa Neck: supple, no JVD Heart: RRR, no murmur Respiratory: no rales, rhonchi, wheezes Gastrointestinal: soft, non-tender, non-distended, normal bowel sounds Extremities: no cyanosis, no edema Neurological: cranial nerve grossly intact, no focal deficits Hosp A/P (1) COVID-19 virus infection Code(s): U07.1 - COVID-19 Status: Acute (2) COPD exacerbation Code(s): J44.1 - CHRONIC OBSTRUCTIVE PULMONARY DISEASE W (ACUTE) EXACERBATION Status: Acute (3) Acute respiratory failure with hypoxia Code(s): J96.01 - ACUTE RESPIRATORY FAILURE WITH HYPOXIA Status: Acute (4) h/o mechanical fall Status: Acute (5) CAD (coronary artery disease) Code(s): I25.10 - ATHSCL HEART DISEASE OF [place] CORONARY ARTERY W/O ANG PCTRS Status: Chronic Qualifiers: Coronary Disease-Associated Artery/Lesion type: [place] artery [place] vs. transplanted heart: [place] heart Associated angina: without angina Qualified Code(s): I25.10 - Atherosclerotic heart disease of [place] coronary artery without angina pectoris (6) HTN (hypertension) Code(s): I10 - ESSENTIAL (PRIMARY) HYPERTENSION Status: Chronic Qualifiers: Hypertension type: essential hypertension Qualified Code(s): I10 - Essential (primary) hypertension (7) Dyslipidemia Code(s): E78.5 - HYPERLIPIDEMIA, UNSPECIFIED Status: Chronic (8) Chronic anemia Code(s): D64.9 - ANEMIA, UNSPECIFIED Status: Chronic (9) Hyponatremia Code(s): E87.1 - HYPO-OSMOLALITY AND HYPONATREMIA Status: Acute (10) Dementia Code(s): F03.90 - UNSPECIFIED DEMENTIA WITHOUT BEHAVIORAL DISTURBANCE Status: Chronic Qualifiers: Dementia type: Alzheimer's Dementia behavioral disturbance: without behavioral disturbance - Plan is on dexamethasone, alb inh, may be a candidate for remdesivir await opinion had a positive test for covid 19 on 06/13/2020 (was not symptomatic but family got her checked due to exposure to covid on ) continue asp, lipitor, venlafaxine, lopressor has ambulated around 6ft with PT d/w daughter and gave full updates, she wants her to be DNAR hemostable
--- NOTE | 2020-06-20 15:29 | CON ---
DATE OF CONSULTATION: 06/20/2020 REASON FOR CONSULT: COVID-19. HISTORY OF PRESENT ILLNESS: An 79-year-old who has history of coronary artery disease, hyperlipidemia and hypertension with some dementia as well, who apparently fell at home and had a history of exposure to SARS-CoV2 on June 05 and tested positive on June 13 without any significant symptoms until the day before admission when she developed worsening cough and dyspnea. On arrival to the ER, she was 190/70, heart rate 68, respiratory rate 18, and temperature 97.9 with O2 saturation 90% on room air and then 96% with 2 L nasal cannula O2. The patient has been treated with Decadron and currently she is in bed. Denies any headaches, no visual symptoms, sore throat, odynophagia, or dysphagia. No dyspnea or chest pain. No cough. No abdominal pain. No genitourinary symptoms. Reliability of her review of systems is limited though by her cognitive dysfunction. PAST MEDICAL HISTORY: Coronary artery disease, hypertension, hyperlipidemia, dementia, CHF, hip replacement left side, hysterectomy, tonsillectomy. SOCIAL HISTORY: Lives with family at home. Former heavy drinker. Former smoker. ALLERGIES: CELEBREX, CRESTOR, TRAMADOL. CURRENT MEDICATIONS: 1. Vitamin C. 2. Lipitor. 3. Dulcolax. 4. Decadron. 5. Effexor. 6. Zinc. FAMILY HISTORY: Noncontributory. PHYSICAL EXAMINATION: VITAL SIGNS: T-max 98.1, blood pressure 140/50, heart rate 62, respirations 20, O2 saturation 99% on 2 L. SKIN: Peripheral IV access. GENERAL: She is voiding, but at the bedside commode. LYMPH: No lymphadenopathy. HEENT: Ocular movements conjugate. Oral cavity not remarkable. NECK: Supple. LUNGS: With fairly clear breath sounds. HEART: S1, S2, regular rate. ABDOMEN: Soft. EXTREMITIES: Moves all extremities equally. No edema. Pulses 1+ in dorsalis pedis. NEUROLOGIC: She is awake. She could not tell me where she was or the date. So quite pronounced cognitive impairment there affecting orientation and memory. LABORATORY DATA: White cell count 7.7, hemoglobin 10.8, platelets 252, with 71% neutrophils. Sodium 135, creatinine 0.81. Liver profile with AST 35, ALT 21, alkaline phosphatase 85, albumin 3.5, and BNP 215. Urinalysis with 21 to 50 wbc's. She was SARS-CoV RT PCR positive on June 19. Chest x-ray on June 19 demonstrated no acute cardiopulmonary findings. ASSESSMENT: Coronary artery disease, hyperlipidemia, dementia, SARS-CoV2 infection with [id number] manifestations. She is saturating close to 100% on 2 L and this is the end of the second week of illness, so I do not expect her to deteriorate going forward and I am not going to change any elements of her management. I do not see any DVT prophylaxis here. The only thing would be to consider the usual enoxaparin prophylaxis dose since there is a risk of thromboembolism with SARS-CoV2 infections. Discharge planning may require O2 at least for the first few days at home. We will go ahead and check her CRP and ferritin to help us predict. Job ID: [id number]
[2020-06-20] MEDS: Albuterol 200 PUFF (6.7GM INHALER) INH SCH (18:30)
[2020-06-20] MEDS: Atorvastatin Calcium 40 MG TAB PO SCH (20:09)
[2020-06-21] MEDS: Albuterol 200 PUFF (6.7GM INHALER) INH SCH ×4 (00:33→18:27)
[2020-06-21] MEDS: Aspirin 81 mg Enteric Coated Tablet PO SCH (08:17)
[2020-06-21] MEDS: Ascorbic Acid 500 mg Chewable Tablet PO SCH (08:17)
[2020-06-21] MEDS: Cholecalciferol 1,000 UNITS (25 MCG) TAB PO SCH (08:18)
[2020-06-21] MEDS: Amlodipine 5 MG TAB PO SCH (08:18)
[2020-06-21] MEDS: Zinc Sulfate 220 MG CAP PO SCH (08:18)
[2020-06-21] MEDS: Famotidine 20 MG TAB PO SCH ×2 (08:18→21:39)
[2020-06-21] MEDS: Dexamethasone 4 mg/ml Vial SLOW IVP SCH (08:19)
[2020-06-21] MEDS: Famotidine/PF 20 mg/2ml Vial SLOW IVP SCH ×2 (08:19→21:39)
[2020-06-21] MEDS: Metoprolol Tartrate 50 MG TAB PO SCH ×2 (08:19→21:40)
[2020-06-21] MEDS: Venlafaxine HCl XR 75 MG CAP PO SCH ×2 (08:19→21:39)
--- NOTE | 2020-06-21 14:16 | PDOC.HOSPP ---
- Subjective Encounter Date: 06/21/20 Encounter Time: 10:40 Subjective: no sob, still has some wheezes which are audible is comfortable on nasal canula O2 - Objective Vital Signs & Weight: Vital Signs (12 hours) Temp Pulse Resp BP Pulse Ox 06/21/20 12:32 98.3 F 59 L 20 145/76 H 95 06/21/20 07:00 98.6 F 60 20 156/55 H 94 L Weight Weight 123 lb 8 oz I&O: 06/20/20 06/21/20 06/22/20 06:59 06:59 06:59 Intake Total 1160 360 Balance 1160 360 Result Diagrams: 06/20/20 06:14 06/20/20 06:14 Hospitalist ROS - Medication Medications: Active Medications Generic Name Dose Route Start Last Admin Trade Name Freq PRN Reason Stop Dose Admin Albuterol Sulfate 2 puff 06/20/20 19:00 06/21/20 13:15 Albuterol 200 Puff (6.7gm Inhaler) INH 2 puff [id number] ARY Administration Amlodipine Besylate 10 mg 06/19/20 09:00 06/21/20 08:18 Amlodipine 5 Mg Tab PO 10 mg DAILY ARY Administration Ascorbic Acid 1,000 mg 06/19/20 09:00 06/21/20 08:17 Ascorbic Acid 500 Mg Chewable Tablet PO 1,000 mg DAILY ARY Administration Aspirin 81 mg 06/19/20 09:00 06/21/20 08:17 Aspirin 81 Mg Enteric Coated Tablet PO 81 mg DAILY ARY Administration Atorvastatin Calcium 40 mg 06/19/20 21:00 06/20/20 20:09 Atorvastatin Calcium 40 Mg Tab PO 40 mg HS ARY Administration Cholecalciferol 5,000 units 06/19/20 09:00 06/21/20 08:18 Cholecalciferol 1,000 Units (25 Mcg) Tab PO 5,000 units DAILY ARY Administration Dexamethasone 6 mg 06/19/20 09:00 06/21/20 08:19 Dexamethasone 4 Mg/Ml Vial SLOW IVP 6 mg DAILY ARY Administration Famotidine 20 mg 06/19/20 09:00 06/21/20 08:18 Famotidine 20 Mg Tab PO 20 mg BID ARY Administration Famotidine 20 mg 06/19/20 09:00 06/21/20 08:19 Famotidine/Pf 20 Mg/2ml Vial SLOW IVP Not Given Q12HR ARY Metoprolol Tartrate 25 mg 06/19/20 09:00 06/21/20 08:19 Metoprolol Tartrate 50 Mg Tab PO 25 mg BID ARY Administration Venlafaxine HCl 75 mg 06/20/20 21:00 06/20/20 20:09 Venlafaxine Hcl Xr 75 Mg Cap PO 75 mg HS ARY Administration Venlafaxine HCl 150 mg 06/20/20 09:00 06/21/20 08:19 Venlafaxine Hcl Xr 75 Mg Cap PO 150 mg QAM ARY Administration Zinc Sulfate 220 mg 06/19/20 09:00 06/21/20 08:18 Zinc Sulfate 220 Mg Cap PO 220 mg DAILY ARY Administration - Exam General Appearance: awake alert Eye: PERRL, anicteric sclera ENT: no oropharyngeal lesions, moist mucosa Neck: supple, no JVD Heart: RRR, no murmur Respiratory: no rales, rhonchi, wheezes Gastrointestinal: soft, non-tender, non-distended, normal bowel sounds Extremities: no cyanosis, no edema Neurological: cranial nerve grossly intact, no focal deficits Hosp A/P (1) COVID-19 virus infection Code(s): U07.1 - COVID-19 Status: Acute (2) COPD exacerbation Code(s): J44.1 - CHRONIC OBSTRUCTIVE PULMONARY DISEASE W (ACUTE) EXACERBATION Status: Acute (3) Acute respiratory failure with hypoxia Code(s): J96.01 - ACUTE RESPIRATORY FAILURE WITH HYPOXIA Status: Acute (4) h/o mechanical fall Status: Acute (5) CAD (coronary artery disease) Code(s): I25.10 - ATHSCL HEART DISEASE OF [place] CORONARY ARTERY W/O ANG PCTRS Status: Chronic Qualifiers: Coronary Disease-Associated Artery/Lesion type: [place] artery [place] vs. transplanted heart: [place] heart Associated angina: without angina Qualified Code(s): I25.10 - Atherosclerotic heart disease of [place] coronary artery without angina pectoris (6) HTN (hypertension) Code(s): I10 - ESSENTIAL (PRIMARY) HYPERTENSION Status: Chronic Qualifiers: Hypertension type: essential hypertension Qualified Code(s): I10 - Essential (primary) hypertension (7) Dyslipidemia Code(s): E78.5 - HYPERLIPIDEMIA, UNSPECIFIED Status: Chronic (8) Chronic anemia Code(s): D64.9 - ANEMIA, UNSPECIFIED Status: Chronic (9) Hyponatremia Code(s): E87.1 - HYPO-OSMOLALITY AND HYPONATREMIA Status: Acute (10) Dementia Code(s): F03.90 - UNSPECIFIED DEMENTIA WITHOUT BEHAVIORAL DISTURBANCE Status: Chronic Qualifiers: Dementia type: Alzheimer's Dementia behavioral disturbance: without behavioral disturbance - Plan is on dexamethasone, alb inh had a positive test for covid 19 on 06/13/2020 (was not symptomatic but family got her checked due to exposure to covid on ) continue asp, lipitor, venlafaxine, lopressor has ambulated around 6ft with PT d/w daughter and gave full updates, she wants her to be DNAR, 06/20, 06/21 plan is home in am with HH, PT and O2 hemostable
[2020-06-21] MEDS: Atorvastatin Calcium 40 MG TAB PO SCH (21:40)
[2020-06-22] MEDS: Albuterol 200 PUFF (6.7GM INHALER) INH SCH ×3 (01:37→16:11)
[2020-06-22] MEDS: Famotidine 20 MG TAB PO SCH (09:11)
[2020-06-22] MEDS: Cholecalciferol 1,000 UNITS (25 MCG) TAB PO SCH (09:11)
[2020-06-22] MEDS: Venlafaxine HCl XR 75 MG CAP PO SCH (09:11)
[2020-06-22] MEDS: Metoprolol Tartrate 50 MG TAB PO SCH (09:12)
[2020-06-22] MEDS: Aspirin 81 mg Enteric Coated Tablet PO SCH (09:13)
[2020-06-22] MEDS: Amlodipine 5 MG TAB PO SCH (09:13)
[2020-06-22] MEDS: Ascorbic Acid 500 mg Chewable Tablet PO SCH (09:13)
[2020-06-22] MEDS: Famotidine/PF 20 mg/2ml Vial SLOW IVP SCH (09:14)
[2020-06-22] MEDS: Zinc Sulfate 220 MG CAP PO SCH (09:14)
[2020-06-22] MEDS: Dexamethasone 4 mg/ml Vial SLOW IVP SCH (09:15)
[2020-06-22 16:11] VITALS: BP 136/55; TEMP 98
--- NOTE | 2020-06-22 17:14 | DIS ---
DATE OF ADMISSION: 06/19/2020 DATE OF DISCHARGE: 06/22/2020 DISCHARGE DISPOSITION: To home with home oxygen along with home health and PT. PRIMARY DISCHARGE DIAGNOSES: Chronic obstructive pulmonary disease exacerbation; COVID-19 virus infection; acute respiratory failure with hypoxia; history of mechanical fall 2 days prior to hospitalization; coronary artery disease; hypertension; dyslipidemia; chronic anemia; hyponatremia on arrival, stable; underlying dementia. PROCEDURES DONE DURING HOSPITALIZATION: Right hip, two-view, x-ray done showed no acute fracture or dislocation. Degenerative changes are seen. Chest x-ray done on admission showed no acute cardiopulmonary abnormality. H and H 10 and 31, platelet count 252, white count of 7.7, MCV is 92, BUN 13, creatinine 0.8, ferritin 388, CRP 1.20. Troponin x3 is negative. Initial sodium of 126, discharge sodium 135. COVID-19 PCR was positive on 06/19/2020. Influenza A and B PCR were negative. DISCHARGE MEDICATIONS: 1. Prednisone 10 mg twice daily for 3 days, then daily for 2 days and to discontinue. 2. DuoNeb 4 times daily. 3. Protonix 40 mg p.o. daily for 2 weeks. 4. Albuterol inhaler q.6 hourly p.r.n. 5. Lisinopril 20 mg p.o. daily. 6. Norvasc 10 mg p.o. daily. 7. Metoprolol 25 mg twice daily. 8. Atorvastatin 40 mg p.o. daily. 9. Lidocaine transdermal patch daily. 10. Venlafaxine extended release 150 mg p.o. q.a.m. and 75 mg p.o. at bedtime. 11. Aspirin 81 mg p.o. daily. ALLERGIES: TO ACETAMINOPHEN, CELECOXIB, HYDROCODONE, ROSUVASTATIN, AND TRAMADOL. DISCHARGE PLAN: The patient to follow up with her primary care physician in 1 week. BRIEF COURSE DURING HOSPITALIZATION: The patient initially got admitted on the after she had a fall 2 days back. The patient apparently got exposed to COVID on and tested positive on the 13 of June. The patient had some shortness of breath as well and was brought to emergency room. Her x-ray did not reveal any infiltrate. The patient had severe wheezing and was placed on steroids along with inhalers. She has responded well to above measures. She had a hip x-ray done, which did not reveal any fractures on the right side where she fell. She has otherwise remained hemodynamically stable and has ambulated nearly 40 feet with minimal assistance and rolling walker. Case Management consultation was requested for home oxygen. Please note, I have seen and examined the patient on the day of discharge. I have given complete updates to the patient's daughter, Ms. Winchester on a daily basis during her stay here. Job ID: [id number]
== END 2020-06-22 15:45 | disposition home health service (06) | DRG 177 ==
LOC: ERS 05:24 → T4-A 07:09
PROVIDERS: ADMIT Student in an Organized Health Care Education/Training Program; ATTEND Internal Medicine
PROC: 8E0ZXY6 Isolation (ICD-10-PCS; principal; 2020-06-19)
DX: U07.1 COVID-19 (principal); J12.82 Pneumonia due to coronavirus disease 2019; J96.01 Acute respiratory failure with hypoxia; E87.1 Hypo-osmolality and hyponatremia; J44.1 Chronic obstructive pulmonary disease with (acute) exacerbation; J44.0 Chronic obstructive pulmonary disease with (acute) lower respiratory infection; Z66 Do not resuscitate; I50.9 Heart failure, unspecified; I25.10 Atherosclerotic heart disease of native coronary artery without angina pectoris; E78.5 Hyperlipidemia, unspecified; I11.0 Hypertensive heart disease with heart failure; D64.9 Anemia, unspecified; G30.9 Alzheimer's disease, unspecified; F02.80 Dementia in other diseases classified elsewhere, unspecified severity, without behavioral disturbance, psychotic disturbance, mood disturbance, and anxiety; F32.9 Major depressive disorder, single episode, unspecified; Z96.642 Presence of left artificial hip joint; Z90.710 Acquired absence of both cervix and uterus; Z79.899 Other long term (current) drug therapy; Z88.8 Allergy status to other drugs, medicaments and biological substances; Z87.891 Personal history of nicotine dependence; Z79.82 Long term (current) use of aspirin
CPT/HCPCS: 0240U; 36415; 71045; 80048; 80053; 81001; 82728; 83735; 83880; 83930; 83935; 84300; 84443; 84484; 85025; 85379; 86140; 93005; 94760; 96374; J1100

== ENCOUNTER 2020-11-10 19:19 | Emergency (ER) | payer MEDICARE, OTHER | END 2020-11-10 20:45 | disposition home or self-care (01) | LOC: ERS 19:19 | DX: S40.011A Contusion of right shoulder, initial encounter (principal); I25.10 Atherosclerotic heart disease of native coronary artery without angina pectoris; E78.5 Hyperlipidemia, unspecified; E78.00 Pure hypercholesterolemia, unspecified; I11.0 Hypertensive heart disease with heart failure; I50.9 Heart failure, unspecified; J44.9 Chronic obstructive pulmonary disease, unspecified; F03.90 Unspecified dementia, unspecified severity, without behavioral disturbance, psychotic disturbance, mood disturbance, and anxiety; Z87.891 Personal history of nicotine dependence; Z79.899 Other long term (current) drug therapy; Z79.82 Long term (current) use of aspirin | CPT/HCPCS: 70450; 71045 ==

== ENCOUNTER 2021-05-17 21:33 | Inpatient (IN) | payer MEDICARE, OTHER ==
[2021-05-17] MEDS ORDERED: Morphine 4 MG/ML VIAL ONE (21:56)
[2021-05-17] MEDS ORDERED: Ondansetron PF 4 MG/2 ML Vial ONE (21:56)
[2021-05-17 22:25] LABS: #Basophils 0.1 thou/uL (0.0-0.2); #Eosinphils 0.1 thou/uL (0.0-0.7); #Monocytes 0.9 thou/uL (0.11-0.59); #Neutrophils 10.9 thou/uL (1.40-6.50); %Basophils 0.6 % (0.0-1.0); %Eosinophils 0.6 % (0.0-10.0); %Lymphocytes 19.9 % (21.0-51.0); %Monocytes 6.1 % (0.0-10.0); %Neutrophils 72.8 % (42.0-75.0); Hemoglobin 12.1 g/dL (12.0-16.0); Mean Corpuscular HGB CONC 32.4 g/dL (32.0-36.0); Mean Corpuscular Hemoglobin 32.5 pg (27.0-31.0); Mean Platelet Volume 6.2 fL (7.4-10.4); Platelet Count 437 thou/uL (130-400); RBC Distribution Width 12.8 % (11.5-14.5); Red Blood Cell (RBC) Count 3.73 mill/uL (4.20-5.40); White Blood Cell (WBC) Count 14.9 thou/uL (4.8-10.8)
[2021-05-17 22:36] LABS: Prothrombin Time 13.1 sec (12.0-14.7)
[2021-05-17 22:37] LABS: PTT 27.2 sec (22.9-36.1)
[2021-05-17 22:56] LABS: ALT (SGPT) 16 U/L (8-55); AST (SGOT) 24 U/L (5-34); Albumin 3.7 g/dL (3.4-4.8); Alkaline Phosphatase 90 U/L (40-110); Anion Gap 11 mmol/L (10-20); BUN (Urea Nitrogen) 29 mg/dL (9.8-20.1); Bilirubin, Total 0.3 mg/dL (0.2-1.2); Calc. Creatinine Clearance 0 mL/min (70-130); Calcium 9.1 mg/dL (7.8-10.44); Carbon Dioxide 22 mmol/L (23-31); Chloride 107 mmol/L (98-107); Globulin 2.9 g/dL (2.4-3.5); Glucose 112 mg/dL (83-110); Protein, Total 6.6 g/dL (5.8-8.1); Sodium 136 mmol/L (136-145)
[2021-05-17] MEDS ORDERED: Morphine 2 MG/ML VIAL SLOW IVP PRN (23:30)
[2021-05-17] MEDS ORDERED: Ondansetron PF 4 MG/2 ML Vial IVP PRN (23:30)
[2021-05-17] MEDS ORDERED: Dextrose 50% Abboject 50 ML SYRINGE SLOW IVP PRN (23:30)
[2021-05-17] MEDS ORDERED: Dextrose 5% in Water 1,000 ML IV PRN (23:30)
[2021-05-17] MEDS ORDERED: hydrALAZINE 20 MG/ML VIAL SLOW IVP PRN (23:30)
[2021-05-17 23:36] LABS: Magnesium 1.9 mg/dL (1.6-2.6); Phosphorus 3.5 mg/dL (2.3-4.7)
[2021-05-17] MEDS ORDERED: Acetaminophen/Codeine 30-300mg Tablet PO PRN (23:39)
[2021-05-18] MEDS: Acetaminophen 325 MG TAB PO SCH ×5 (00:52→23:41)
[2021-05-18] MEDS: Ibuprofen 200 MG TAB PO SCH ×3 (05:44→21:18)
[2021-05-18] MEDS ORDERED: ceFAZolin Sodium/D5W 2 GM in Premix Bag 1 BAG IVPB SCH (07:45)
[2021-05-18] MEDS: Senokot S 8.6-50 MG TAB PO SCH ×3 (08:12→21:20)
[2021-05-18] MEDS: Polyethylene Glycol 3350 17 GM Packet PO SCH (08:12)
[2021-05-18] MEDS ORDERED: [UNRECOGNIZED DRUG - OTHER] MC PRN (08:46)
[2021-05-18] MEDS ORDERED: Non-Formulary Item 1 EACH (Albuterol Sulfate 200 PUFF Aer) INH PRN (08:46)
[2021-05-18] MEDS ORDERED: Venlafaxine HCl XR 75 MG CAP PO PRN (08:46)
[2021-05-18] MEDS ORDERED: Albuterol 200 PUFF (6.7GM INHALER) INH PRN (08:59)
[2021-05-18] MEDS ORDERED: Amlodipine 5 MG TAB PO SCH (09:00)
[2021-05-18] MEDS ORDERED: Famotidine 20 MG TAB PO SCH (09:00)
[2021-05-18] MEDS ORDERED: Metoprolol Tartrate 50 MG TAB PO SCH (09:00)
[2021-05-18] MEDS: Metoprolol Tartrate 25 MG TAB PO SCH ×2 (09:24→21:19)
[2021-05-18] MEDS ORDERED: Magnesium Sulfate 3 GM in Sodium Chloride 0.9% 100 ML IV SCH (10:00)
[2021-05-18 11:08] LABS: SARS-CoV-2 PCR by NAA Not Detected (NotDetected)
[2021-05-18] MEDS ORDERED: Fentanyl 100 MCG/2 ML VIAL ONE (11:38)
[2021-05-18] MEDS ORDERED: ceFAZolin 2 GM/DEX 5% 100 ML BAG ONE ×2 (11:46→11:47)
[2021-05-18] MEDS: Famotidine 20 MG TAB PO SCH ×2 (12:02→21:19)
[2021-05-18] MEDS ORDERED: [UNRECOGNIZED DRUG - SUPPLY] NEB SCH (13:00)
[2021-05-18] MEDS ORDERED: Propofol 500 MG/50 ML VIAL ONE (13:30)
[2021-05-18] MEDS ORDERED: Ondansetron HCl/PF 4 MG/2 ML Vial IVP PRN (15:20)
[2021-05-18] MEDS ORDERED: Promethazine HCl 25 MG/ML VIAL IVPB PRN (15:20)
[2021-05-18] MEDS ORDERED: Promethazine HCl 25 MG/ML VIAL IM PRN (15:20)
[2021-05-18] MEDS: Atorvastatin Calcium 40 MG TAB PO SCH (16:55)
[2021-05-18] MEDS: Amlodipine 10 MG TAB PO SCH (16:55)
[2021-05-18] MEDS ORDERED: Morphine 4 MG/ML VIAL SLOW IVP PRN (17:00)
[2021-05-18] MEDS: ceFAZolin Sodium/D5W 2 GM in Premix Bag 1 BAG IVPB SCH (19:40)
[2021-05-19] MEDS: ceFAZolin Sodium/D5W 2 GM in Premix Bag 1 BAG IVPB SCH (03:57)
[2021-05-19] MEDS: Ibuprofen 200 MG TAB PO SCH ×3 (06:30→21:55)
[2021-05-19] MEDS: Acetaminophen 325 MG TAB PO SCH ×3 (06:30→18:32)
[2021-05-19] MEDS: Amlodipine 10 MG TAB PO SCH (08:54)
[2021-05-19] MEDS: Senokot S 8.6-50 MG TAB PO SCH ×2 (08:54→21:55)
[2021-05-19] MEDS: Atorvastatin Calcium 40 MG TAB PO SCH (08:54)
[2021-05-19] MEDS: Famotidine 20 MG TAB PO SCH ×2 (08:55→21:55)
[2021-05-19] MEDS: Metoprolol Tartrate 25 MG TAB PO SCH ×2 (08:55→21:55)
[2021-05-19] MEDS: Polyethylene Glycol 3350 17 GM Packet PO SCH (08:56)
[2021-05-19] MEDS: Aspirin 81 mg Enteric Coated Tablet PO SCH ×2 (08:58→21:55)
[2021-05-19 09:10] LABS: #Basophils 0.1 thou/uL (0.0-0.2); #Eosinphils 0.2 thou/uL (0.0-0.7); #Lymphocytes 1.7 thou/uL (1.20-3.40); #Monocytes 0.9 thou/uL (0.11-0.59); #Neutrophils 11.7 thou/uL (1.40-6.50); %Basophils 0.4 % (0.0-1.0); %Eosinophils 1.7 % (0.0-10.0); %Lymphocytes 11.6 % (21.0-51.0); %Neutrophils 80.3 % (42.0-75.0); Mean Corpuscular HGB CONC 31.5 g/dL (32.0-36.0); Mean Corpuscular Hemoglobin 31.6 pg (27.0-31.0); Mean Platelet Volume 6.4 fL (7.4-10.4); Platelet Count 362 thou/uL (130-400); RBC Distribution Width 12.8 % (11.5-14.5); Red Blood Cell (RBC) Count 3.47 mill/uL (4.20-5.40); White Blood Cell (WBC) Count 14.5 thou/uL (4.8-10.8)
[2021-05-19 09:31] LABS: Anion Gap 13 mmol/L (10-20); BUN (Urea Nitrogen) 17 mg/dL (9.8-20.1); Calc. Creatinine Clearance 36 mL/min (70-130); Calcium 8.4 mg/dL (7.8-10.44); Carbon Dioxide 18 mmol/L (23-31); Chloride 107 mmol/L (98-107); Glucose 105 mg/dL (83-110); Potassium 3.9 mmol/L (3.5-5.1); Sodium 134 mmol/L (136-145)
[2021-05-19] MEDS ORDERED: Melatonin 3 MG TAB PO SCH (22:15)
[2021-05-20] MEDS: Acetaminophen 325 MG TAB PO SCH ×2 (01:14→06:00)
[2021-05-20 05:22] LABS: #Basophils 0.1 thou/uL (0.0-0.2); #Eosinphils 0.2 thou/uL (0.0-0.7); #Lymphocytes 2.3 thou/uL (1.20-3.40); #Monocytes 1.1 thou/uL (0.11-0.59); #Neutrophils 9.9 thou/uL (1.40-6.50); %Basophils 0.7 % (0.0-1.0); %Eosinophils 1.4 % (0.0-10.0); %Monocytes 8.3 % (0.0-10.0); %Neutrophils 72.6 % (42.0-75.0); Hemoglobin 9.8 g/dL (12.0-16.0); Mean Corpuscular HGB CONC 32.3 g/dL (32.0-36.0); Mean Corpuscular Hemoglobin 31.8 pg (27.0-31.0); Mean Corpuscular Volume 98.4 fL (78.0-98.0); Mean Platelet Volume 6.4 fL (7.4-10.4); Platelet Count 312 thou/uL (130-400); RBC Distribution Width 12.8 % (11.5-14.5); Red Blood Cell (RBC) Count 3.09 mill/uL (4.20-5.40); White Blood Cell (WBC) Count 13.6 thou/uL (4.8-10.8)
[2021-05-20 05:45] LABS: Magnesium 2.3 mg/dL (1.6-2.6); Phosphorus 2.7 mg/dL (2.3-4.7)
[2021-05-20] MEDS: Ibuprofen 200 MG TAB PO SCH (05:59)
[2021-05-20] MEDS ORDERED: Bisacodyl 10 MG SUPP PR ONE (06:00)
[2021-05-20 08:08] VITALS: BP 151/54; TEMP 98.4
[2021-05-20] MEDS: Amlodipine 10 MG TAB PO SCH (08:33)
[2021-05-20] MEDS: Metoprolol Tartrate 25 MG TAB PO SCH (08:34)
[2021-05-20] MEDS: Atorvastatin Calcium 40 MG TAB PO SCH (08:34)
[2021-05-20] MEDS: Aspirin 81 mg Enteric Coated Tablet PO SCH (08:34)
[2021-05-20] MEDS: Polyethylene Glycol 3350 17 GM Packet PO SCH (08:34)
[2021-05-20] MEDS: Senokot S 8.6-50 MG TAB PO SCH (08:34)
[2021-05-20] MEDS ORDERED: Famotidine 20 MG TAB PO SCH (21:00)
== END 2021-05-20 12:15 | DRG 522 ==
LOC: ERS 21:33 → SURG A 23:02
PROVIDERS: ADMIT Specialist; ATTEND Specialist
PROC: 0SRR0JA Replacement of Right Hip Joint, Femoral Surface with Synthetic Substitute, Uncemented, Open Approach (ICD-10-PCS; principal; 2021-05-18)
DX: M84.451A Pathological fracture, right femur, initial encounter for fracture (principal); I50.9 Heart failure, unspecified; I25.10 Atherosclerotic heart disease of native coronary artery without angina pectoris; E78.5 Hyperlipidemia, unspecified; E78.00 Pure hypercholesterolemia, unspecified; I11.0 Hypertensive heart disease with heart failure; J44.9 Chronic obstructive pulmonary disease, unspecified; F03.90 Unspecified dementia, unspecified severity, without behavioral disturbance, psychotic disturbance, mood disturbance, and anxiety; F32.A Depression, unspecified; Z20.822 Contact with and (suspected) exposure to COVID-19; Z96.642 Presence of left artificial hip joint; Z90.710 Acquired absence of both cervix and uterus; Z90.49 Acquired absence of other specified parts of digestive tract; Z87.891 Personal history of nicotine dependence; Z88.5 Allergy status to narcotic agent; Z88.8 Allergy status to other drugs, medicaments and biological substances
CPT/HCPCS: 36415; 71045; 72170; 80048; 80053; 83735; 84100; 85025; 85610; 85730; 86850; 86900; 86901; 93005; 94640; 96374; 96375; C1713; C1776; J0360; J2270; J2405; J2704; J3010; J3475; J3490; J7620; U0003; U0005

== ENCOUNTER 2021-06-04 11:29 | Emergency (ER) | payer MEDICARE, OTHER ==
[2021-06-04 13:58] LABS: Bilirubin Negative (Negative); Blood, Urine Negative (Negative); Clarity Clear (Clear); Glucose, Urine (Dipstick) Normal (Negative); Ketone, Urine Negative (Negative); Leukocyte Negative Leu/uL (Negative); Nitrite Negative (Negative); Protein, Urine (Dipstick) 10 mg/dL (Neg-Trace); Specific Gravity, Urine 1.023 (1.002-1.036); Urobilinogen Normal mg/dL (Less than 2); pH, Urine 5.5 (5.0-9.0)
== END 2021-06-04 14:40 | disposition home or self-care (01) ==
LOC: ERS 11:29
DX: S70.01XA Contusion of right hip, initial encounter (principal); W18.2XXA Fall in (into) shower or empty bathtub, initial encounter; I25.10 Atherosclerotic heart disease of native coronary artery without angina pectoris; E78.5 Hyperlipidemia, unspecified; E78.00 Pure hypercholesterolemia, unspecified; I11.0 Hypertensive heart disease with heart failure; I50.9 Heart failure, unspecified; J44.9 Chronic obstructive pulmonary disease, unspecified; F17.210 Nicotine dependence, cigarettes, uncomplicated; Z79.82 Long term (current) use of aspirin; Z79.899 Other long term (current) drug therapy
CPT/HCPCS: 51701; 81003; 87086